=== PATIENT | male | born 1960 | race Caucasian/White ===

== ENCOUNTER 2017-12-31 18:10 | Inpatient (IN) ==
[2017-12-31] MEDS ORDERED: NITROGLYCERIN 2% OINT 1 INCH/GM PACK TOP STA (18:20)
[2017-12-31] MEDS ORDERED: hydrALAZINE 20 MG/1 ML VIAL IV STA (18:20)
[2017-12-31] MEDS ORDERED: ASPIRIN 325 MG TABLET PO STA (18:20)
[2017-12-31] MEDS ORDERED: METOPROLOL TARTRATE 5 MG/5 ML VIAL IV STA (18:20)
[2017-12-31] MEDS ORDERED: ONDANSETRON 4 MG/2 ML VIAL IV STA (18:20)
[2017-12-31] MEDS ORDERED: NITROGLYCERIN 2% OINT 1 INCH/GM PACK TOP ONE (18:28)
[2017-12-31] MEDS ORDERED: ONDANSETRON 4 MG/2 ML VIAL ONE (18:29)
[2017-12-31] MEDS ORDERED: hydrALAZINE 20 MG/1 ML VIAL ONE (18:29)
[2017-12-31] MEDS ORDERED: ASPIRIN 325 MG TABLET ONE (18:29)
[2017-12-31] MEDS ORDERED: METOPROLOL TARTRATE 5 MG/5 ML VIAL IV ONE (18:29)
[2017-12-31 18:34] LABS: Basophils % 0.3 % (0.0-0.8); Eosinophils # 0.2 10*3/uL (0.0-0.87); Eosinophils % 2.3 % (0.00-10.9); Hematocrit 47.1 VOL% (42.0-52.0); Hemoglobin 16.7 GM/DL (14.0-18.0); Immature Granulocytes % 0.5 %; Immature Granulocytes Absolute 0.05 #; Lymphocytes # 2.7 10*3/uL (1.4-4.0); Mean Corpuscular HGB Conc 35.5 GM/DL (32-36); Mean Corpuscular Hemoglobin 31 PG (27-34); Mean Corpuscular Volume 85.9 FL (87-102); Mean Platelet Volume 10.3 FL (9.6-12.0); Monocytes # 0.7 10*3/uL (0.11-0.8); Monocytes % 7.6 % (1.7-12.7); Neutrophils % 61.3 % (38.7-73.9); Platelet Count 272 T/CUMM (130-400); Red Blood Count 5.48 MC/CUMM (3.8-5.5); Red Cell Distribution Width 12.4 % (9.3-17.3); White Blood Count 9.8 T/CUMM (4-12)
[2017-12-31 18:42] LABS: PT Patient Result 10.1 SECS; Partial Thromboplastin Time 25.2 SECS (0-40)
[2017-12-31 19:04] LABS: Albumin 3.8 G/DL (3.4-5.0); Bilirubin,Total 0.4 MG/DL (0.2-1.0); CKMB % 3.3 %; Calcium 9.4 MG/DL (8.5-10.1); Potassium 5.4 MMOL/L (3.5-5.1); Total Protein 7.4 G/DL (6.4-8.3)
[2017-12-31 19:28] LABS: Troponin I Only 1.58 NG/ML (0.00-0.045)
[2017-12-31] MEDS ORDERED: INSULIN REGULAR 100 UNIT/ML IV STA (19:30)
[2017-12-31] MEDS ORDERED: SODIUM CHLORIDE 0.9% 500 ML IV STA (19:32)
[2017-12-31] MEDS ORDERED: INSULIN REGULAR 100 UNIT/ML ONE (19:42)
[2017-12-31] MEDS ORDERED: HYDROmorphone 2 MG/1 ML VIAL ONE ×2 (20:34→21:49)
[2017-12-31] MEDS ORDERED: HYDROmorphone 2 MG/1 ML VIAL IV STA ×2 (20:35→21:59)
[2017-12-31] MEDS ORDERED: traMADol 50 MG TABLET PO PRN (20:50)
[2017-12-31] MEDS ORDERED: HYDROmorphone 2 MG/1 ML VIAL IV PRN ×2 (20:56→23:54)
[2017-12-31] MEDS ORDERED: MAGNESIUM SULF RIDER 4 GM in PREMIX 1 EACH IV PRN (20:59)
[2017-12-31] MEDS ORDERED: POTASSIUM CHLORIDE 20 MEQ TABLET PO PRN (20:59)
[2017-12-31] MEDS ORDERED: DOCUSATE SODIUM 100 MG CAPSULE PO PRN (20:59)
[2017-12-31] MEDS ORDERED: PROMETHAZINE 25 MG TABLET PO PRN (20:59)
[2017-12-31] MEDS ORDERED: ONDANSETRON 4 MG/2 ML VIAL IV PRN ×2 (20:59→23:54)
[2017-12-31] MEDS ORDERED: DEXTROSE 50% 25 GM/50 ML VIAL IV PRN ×2 (20:59→23:54)
[2017-12-31] MEDS ORDERED: MAGNESIUM SULF RIDER 2 GM in PREMIX 1 EACH IV PRN (20:59)
[2017-12-31] MEDS ORDERED: ZALEPLON 5 MG CAPSULE PO PRN (20:59)
[2017-12-31] MEDS ORDERED: ACETAMINOPHEN 325 MG TABLET PO PRN (20:59)
[2017-12-31] MEDS ORDERED: GLUCAGON 1 MG VIAL IM PRN ×2 (20:59→23:54)
[2017-12-31] MEDS ORDERED: ENOXAPARIN 120 MG/0.8 ML SYRINGE SUBCUT SCH (21:00)
[2017-12-31] MEDS ORDERED: CARVEDILOL 12.5 MG TABLET PO SCH (21:00)
[2017-12-31] MEDS ORDERED: INSULIN REGULAR 100 UNIT/ML SUBCUT SCH (21:00)
[2017-12-31] MEDS ORDERED: CARVEDILOL 6.25 MG TABLET PO SCH (21:00)
[2017-12-31] MEDS ORDERED: hydrALAZINE 20 MG/1 ML VIAL IV PRN ×3 (21:10→23:54)
[2017-12-31] MEDS ORDERED: INSULIN NPH/REGULAR 70/30 100 UNIT/ML SUBCUT SCH ×2 (21:30→22:30)
[2017-12-31] MEDS ORDERED: ENOXAPARIN 120 MG/0.8 ML SYRINGE SUBCUT STA (21:41)
[2017-12-31] MEDS ORDERED: ENOXAPARIN 120 MG/0.8 ML SYRINGE SUBCUT ONE (21:45)
[2017-12-31] MEDS ORDERED: FUROSEMIDE 20 MG/2 ML VIAL IV STA (23:13)
[2017-12-31 23:21] LABS: Apearance,Urine CLEAR (Clear); Bilirubin,Urine Negative (Negative); Blood, Urine Negative (Negative); Glucose,Urine (UA) >=500 mg/dL (Negative); Ketones,Urine Negative (Negative); Nitrite,Urine Negative (Negative); Protein,Urine Negative; RBC,Urine <1 /HPF (0-4); Urine Color Yellow (Yellow); Urine Specific Gravity 1.036 (1.001-1.035); Urine Urobilinogen < 2.0 EU/DL (0.2-1.0); WBC,Urine 1 /HPF (0-6)
[2017-12-31 23:31] LABS: Barbiturates Screen,Urine Negative (Negative); Benzodiazepines Screen,Urine Negative (Negative); Cannabinoid Screen,Urine Negative (Negative); Opiate Screen,Urine Positive (Negative); Phencyclidine Screen,Urine Negative (Negative)
[2017-12-31] MEDS ORDERED: FUROSEMIDE 20 MG/2 ML VIAL ONE (23:41)
[2017-12-31] MEDS ORDERED: NITROGLYCERIN DRIP 50 MG/250 ML BOTTLE IV ONE (23:47)
[2017-12-31] MEDS: NITROGLYCERIN DRIP 50 MG/250 ML BOTTLE IV SCH (23:50)
[2017-12-31] MEDS ORDERED: SODIUM CHLORIDE 0.45% 1,000 ML IV SCH (23:54)
[2018-01-01] MEDS: NITROGLYCERIN 2% OINT 1 INCH/GM PACK TOP SCH ×4 (00:39→17:16)
[2018-01-01 00:43] LABS: CKMB % 3.7 %
[2018-01-01 00:49] LABS: Troponin I Only 3.02 NG/ML (0.00-0.045)
[2018-01-01] MEDS: INSULIN REGULAR 100 UNIT/ML SUBCUT SCH ×5 (01:14→20:07)
[2018-01-01] MEDS: HYDROmorphone 2 MG/1 ML VIAL IV PRN ×6 (03:11→22:01)
[2018-01-01 05:16] LABS: Risk Ratio 7.89; VLDL CHOLESTEROL 72.6 MG/DL
[2018-01-01 05:28] LABS: CKMB % 3.7 %; Troponin I Only 3.91 NG/ML (0.00-0.045)
[2018-01-01] MEDS ORDERED: ACETAMINOPHEN 325 MG TABLET PO PRN (08:20)
[2018-01-01] MEDS ORDERED: MAGNESIUM SULF RIDER 2 GM in PREMIX 1 EACH IV PRN (08:20)
[2018-01-01] MEDS ORDERED: ZALEPLON 5 MG CAPSULE PO PRN (08:20)
[2018-01-01] MEDS ORDERED: DOCUSATE SODIUM 100 MG CAPSULE PO PRN (08:20)
[2018-01-01] MEDS ORDERED: MAGNESIUM SULF RIDER 4 GM in PREMIX 1 EACH IV PRN (08:20)
[2018-01-01] MEDS ORDERED: DIAZEPAM 5 MG TABLET ONE (08:41)
[2018-01-01] MEDS ORDERED: diphenhydrAMINE CAP 25 MG CAPSULE ONE (08:41)
[2018-01-01] MEDS ORDERED: diphenhydrAMINE CAP 50 MG CAPSULE PO ONE (08:44)
[2018-01-01] MEDS ORDERED: DIAZEPAM 5 MG TABLET PO ONE (08:45)
[2018-01-01 08:46] LABS: Basophils # 0.1 10*3/uL (0.0-0.2); Basophils % 0.6 % (0.0-0.8); Eosinophils # 0.2 10*3/uL (0.0-0.87); Eosinophils % 2.9 % (0.00-10.9); Hematocrit 42.2 VOL% (42.0-52.0); Hemoglobin 14.9 GM/DL (14.0-18.0); Immature Granulocytes % 0.8 %; Immature Granulocytes Absolute 0.06 #; Lymphocytes # 2.8 10*3/uL (1.4-4.0); Lymphocytes % 34.7 % (21.2-54.2); Mean Corpuscular HGB Conc 35.3 GM/DL (32-36); Mean Corpuscular Hemoglobin 31 PG (27-34); Mean Corpuscular Volume 86.3 FL (87-102); Monocytes # 0.8 10*3/uL (0.11-0.8); Monocytes % 9.6 % (1.7-12.7); Neutrophils # 4.1 10*3/uL (1.4-7.4); Neutrophils % 51.4 % (38.7-73.9); Platelet Count 254 T/CUMM (130-400); Red Blood Count 4.89 MC/CUMM (3.8-5.5); Red Cell Distribution Width 12.6 % (9.3-17.3); White Blood Count 7.9 T/CUMM (4-12)
[2018-01-01] MEDS: PANTOPRAZOLE 40 MG TABLET PO SCH (08:46)
[2018-01-01] MEDS: PRASUGREL 10 MG TABLET PO SCH (08:46)
[2018-01-01] MEDS: CARVEDILOL 12.5 MG TABLET PO SCH ×2 (08:46→20:07)
[2018-01-01] MEDS: ASPIRIN EC 81 MG TABLET PO SCH (08:46)
[2018-01-01] MEDS: ENOXAPARIN 120 MG/0.8 ML SYRINGE SUBCUT SCH ×2 (08:57→20:11)
[2018-01-01] MEDS ORDERED: LISINOPRIL 10 MG TABLET PO SCH (09:00)
[2018-01-01] MEDS ORDERED: PANTOPRAZOLE 40 MG TABLET PO SCH (09:00)
[2018-01-01] MEDS ORDERED: PRASUGREL 10 MG TABLET PO SCH (09:00)
[2018-01-01] MEDS ORDERED: PRAVASTATIN 40 MG TABLET PO SCH (09:00)
[2018-01-01] MEDS ORDERED: ASPIRIN EC 81 MG TABLET PO SCH (09:00)
[2018-01-01] MEDS ORDERED: NITROGLYCERIN 0.1 MG/HR PATCH TRANSDERM SCH (09:00)
[2018-01-01] MEDS: SODIUM CHLORIDE 0.9% 1,000 ML IV SCH ×3 (09:00→19:45)
[2018-01-01] MEDS ORDERED: INSULIN NPH/REGULAR 70/30 100 UNIT/ML SUBCUT SCH ×2 (09:00)
[2018-01-01 09:09] LABS: Calcium 8.8 MG/DL (8.5-10.1); Potassium 4.6 MMOL/L (3.5-5.1)
[2018-01-01] MEDS ORDERED: LIDOCAINE 1% 20 ML VIAL ONE (09:26)
[2018-01-01] MEDS ORDERED: MEPERIDINE 25 MG/1 ML VIAL ONE ×3 (09:26→10:14)
[2018-01-01] MEDS ORDERED: MIDAZOLAM 2 MG/2 ML VIAL ONE (09:26)
[2018-01-01] MEDS ORDERED: TIROFIBAN 5,000 MCG/100 ML PREMIX IV ONE (10:11)
[2018-01-01] MEDS ORDERED: HEPARIN 5,000 UNIT/1 ML VIAL ONE (10:24)
[2018-01-01] MEDS ORDERED: HYDROmorphone 2 MG/1 ML VIAL ONE (11:00)
[2018-01-01] MEDS ORDERED: NITROGLYCERIN DRIP 50 MG/250 ML BOTTLE IV ONE (11:05)
[2018-01-01] MEDS ORDERED: PRASUGREL 10 MG TABLET ONE (11:43)
[2018-01-01 13:32] LABS: CKMB % 3.2 %
[2018-01-01 13:34] LABS: Troponin I Only 4.22 NG/ML (0.00-0.045)
[2018-01-01] MEDS: VENLAFAXINE XR 75 MG CAPSULE PO SCH (14:25)
[2018-01-01] MEDS: ROSUVASTATIN 20 MG TABLET PO SCH (20:07)
[2018-01-01 23:01] LABS: CKMB % 3.8 %
[2018-01-01 23:03] LABS: Troponin I Only 3.48 NG/ML (0.00-0.045)
[2018-01-02] MEDS: NITROGLYCERIN 2% OINT 1 INCH/GM PACK TOP SCH ×2 (00:06→06:16)
[2018-01-02] MEDS: HYDROmorphone 2 MG/1 ML VIAL IV PRN ×3 (00:49→07:24)
[2018-01-02 04:27] LABS: Basophils % 0.5 % (0.0-0.8); Eosinophils # 0.3 10*3/uL (0.0-0.87); Eosinophils % 3.2 % (0.00-10.9); Hemoglobin 14.4 GM/DL (14.0-18.0); Immature Granulocytes % 0.7 %; Immature Granulocytes Absolute 0.06 #; Lymphocytes # 1.7 10*3/uL (1.4-4.0); Lymphocytes % 20.1 % (21.2-54.2); Mean Corpuscular HGB Conc 33.5 GM/DL (32-36); Mean Corpuscular Hemoglobin 30 PG (27-34); Mean Corpuscular Volume 88.8 FL (87-102); Mean Platelet Volume 9.9 FL (9.6-12.0); Monocytes # 0.7 10*3/uL (0.11-0.8); Monocytes % 7.7 % (1.7-12.7); Neutrophils # 5.8 10*3/uL (1.4-7.4); Neutrophils % 67.8 % (38.7-73.9); Platelet Count 226 T/CUMM (130-400); Red Blood Count 4.84 MC/CUMM (3.8-5.5); Red Cell Distribution Width 12.5 % (9.3-17.3); White Blood Count 8.5 T/CUMM (4-12)
[2018-01-02 04:57] LABS: Calcium 8.3 MG/DL (8.5-10.1); Osmolality,Calculated 276.1 MOS/KG (273-304); Potassium 4.7 MMOL/L (3.5-5.1)
[2018-01-02 05:00] LABS: CKMB % 4.6 %
[2018-01-02 05:03] LABS: Troponin I Only 3.03 NG/ML (0.00-0.045)
[2018-01-02] MEDS: NITROGLYCERIN DRIP 50 MG/250 ML BOTTLE IV SCH (07:05)
[2018-01-02] MEDS: INSULIN REGULAR 100 UNIT/ML SUBCUT SCH ×4 (08:36→21:25)
[2018-01-02] MEDS: PANTOPRAZOLE 40 MG TABLET PO SCH (08:37)
[2018-01-02] MEDS: VENLAFAXINE XR 75 MG CAPSULE PO SCH (08:37)
[2018-01-02] MEDS: ENOXAPARIN 120 MG/0.8 ML SYRINGE SUBCUT SCH (08:37)
[2018-01-02] MEDS: ASPIRIN EC 81 MG TABLET PO SCH (08:38)
[2018-01-02] MEDS: CARVEDILOL 12.5 MG TABLET PO SCH (08:38)
[2018-01-02] MEDS: PRASUGREL 10 MG TABLET PO SCH (08:38)
[2018-01-02] MEDS: ISOSORBIDE MONONITRATE 30 MG TABLET PO SCH (11:36)
[2018-01-02] MEDS: CARVEDILOL 25 MG TABLET PO SCH (21:22)
[2018-01-02] MEDS: ROSUVASTATIN 20 MG TABLET PO SCH (21:22)
[2018-01-03 05:01] LABS: Basophils % 0.2 % (0.0-0.8); Eosinophils # 0.2 10*3/uL (0.0-0.87); Eosinophils % 3.3 % (0.00-10.9); Hematocrit 38.9 VOL% (42.0-52.0); Hemoglobin 13.7 GM/DL (14.0-18.0); Immature Granulocytes % 0.6 %; Immature Granulocytes Absolute 0.03 #; Lymphocytes # 1.2 10*3/uL (1.4-4.0); Lymphocytes % 23.1 % (21.2-54.2); Mean Corpuscular HGB Conc 35.2 GM/DL (32-36); Mean Corpuscular Hemoglobin 30 PG (27-34); Mean Corpuscular Volume 85.1 FL (87-102); Mean Platelet Volume 10.1 FL (9.6-12.0); Monocytes # 0.5 10*3/uL (0.11-0.8); Monocytes % 8.6 % (1.7-12.7); Neutrophils # 3.4 10*3/uL (1.4-7.4); Neutrophils % 64.2 % (38.7-73.9); Platelet Count 204 T/CUMM (130-400); Red Blood Count 4.57 MC/CUMM (3.8-5.5); Red Cell Distribution Width 12.2 % (9.3-17.3); White Blood Count 5.2 T/CUMM (4-12)
[2018-01-03 05:59] LABS: Calcium 8.3 MG/DL (8.5-10.1); Osmolality,Calculated 285.7 MOS/KG (273-304); Potassium 4.4 MMOL/L (3.5-5.1)
[2018-01-03 08:22] VITALS: BP 165/88
[2018-01-03] MEDS ORDERED: ENOXAPARIN 40 MG/0.4 ML SYRINGE SUBCUT SCH (09:00)
[2018-01-03] MEDS: VENLAFAXINE XR 75 MG CAPSULE PO SCH (09:00)
[2018-01-03] MEDS ORDERED: LISINOPRIL 10 MG TABLET PO SCH (09:00)
[2018-01-03] MEDS: CARVEDILOL 25 MG TABLET PO SCH (09:00)
[2018-01-03] MEDS: PRASUGREL 10 MG TABLET PO SCH (09:01)
[2018-01-03] MEDS: ASPIRIN EC 81 MG TABLET PO SCH (09:01)
[2018-01-03] MEDS: ISOSORBIDE MONONITRATE 30 MG TABLET PO SCH (09:01)
[2018-01-03] MEDS: PANTOPRAZOLE 40 MG TABLET PO SCH (09:01)
[2018-01-03] MEDS: INSULIN REGULAR 100 UNIT/ML SUBCUT SCH (09:03)
== END 2018-01-03 11:33 | disposition home or self-care (01) | DRG 247 ==
LOC: EDBD → EDUNIT# → N.ED 18:10 → N.EDINP 19:46 → N.TELES 20:17 → N.ED 21:06 → N.CC 23:54 → N.TELEN 01-02 15:54
PROVIDERS: ADMIT Internal Medicine Clinical Cardiac Electrophysiology; ATTEND Internal Medicine Clinical Cardiac Electrophysiology
PROC: CLCCHCL (ICD-10-PCS; 2018-01-01 09:45)

== ENCOUNTER 2018-05-10 14:50 | Inpatient (IN) ==
[2018-05-10] MEDS ORDERED: ONDANSETRON 4 MG/2 ML VIAL IV PRN (15:11)
[2018-05-10] MEDS ORDERED: DOCUSATE SODIUM 100 MG CAPSULE PO PRN (15:11)
[2018-05-10] MEDS ORDERED: DEXTROSE 50% 25 GM/50 ML VIAL IV PRN (15:17)
[2018-05-10] MEDS ORDERED: GLUCAGON 1 MG VIAL IM PRN (15:17)
[2018-05-10] MEDS: INSULIN REGULAR 100 UNIT/ML SUBCUT SCH (18:10)
[2018-05-10] MEDS: SODIUM CHLORIDE 0.9% 1,000 ML IV SCH (18:46)
[2018-05-10] MEDS: PIPERACILLIN/TAZOBACTAM 3,375 MG in SODIUM CHLORIDE 0.9% 100 ML IV SCH (18:47)
[2018-05-10 18:49] LABS: Basophils % 0.4 % (0.0-0.8); Eosinophils # 0.2 10*3/uL (0.0-0.87); Eosinophils % 2.6 % (0.00-10.9); Hematocrit 38.6 VOL% (42.0-52.0); Hemoglobin 13.3 GM/DL (14.0-18.0); Immature Granulocytes % 0.4 %; Immature Granulocytes Absolute 0.03 #; Lymphocytes # 1.8 10*3/uL (1.4-4.0); Lymphocytes % 25.4 % (21.2-54.2); Mean Corpuscular HGB Conc 34.5 GM/DL (32-36); Mean Corpuscular Hemoglobin 30 PG (27-34); Mean Corpuscular Volume 87.1 FL (87-102); Mean Platelet Volume 10.3 FL (9.6-12.0); Monocytes # 0.6 10*3/uL (0.11-0.8); Monocytes % 8.9 % (1.7-12.7); Neutrophils # 4.4 10*3/uL (1.4-7.4); Neutrophils % 62.3 % (38.7-73.9); Platelet Count 189 T/CUMM (130-400); Red Blood Count 4.43 MC/CUMM (3.8-5.5); Red Cell Distribution Width 12.5 % (9.3-17.3); White Blood Count 7.1 T/CUMM (4-12)
[2018-05-10 19:10] LABS: Platelet Estimate Adequate
[2018-05-10 19:14] LABS: Alanine Aminotransferase 23 U/L (16-61); Albumin 3.5 G/DL (3.4-5.0); Alkaline Phosphatase 102 U/L (45-117); Aspartate Amino Transferase 20 U/L (0-37); Bilirubin,Total < 0.39 MG/DL (0.2-1.0); Blood Urea Nitrogen 25 MG/DL (7-18); Calcium 9.4 MG/DL (8.5-10.1); Glucose 273 MG/DL (74-106); Osmolality,Calculated 292.4 MOS/KG (273-304); Potassium 4.8 MMOL/L (3.5-5.1); Sodium 140 MMOL/L (136-145); Total Protein 7.3 G/DL (6.4-8.3)
[2018-05-10] MEDS: VANCOMYCIN INJ 2,000 MG in SODIUM CHLORIDE 0.9% 500 ML IV SCH (23:06)
[2018-05-11] MEDS: INSULIN REGULAR 100 UNIT/ML SUBCUT SCH ×4 (00:12→21:00)
[2018-05-11] MEDS: PIPERACILLIN/TAZOBACTAM 3,375 MG in SODIUM CHLORIDE 0.9% 100 ML IV SCH ×2 (03:36→12:24)
[2018-05-11] MEDS: ACETAMINOPHEN 325 MG TABLET PO PRN ×2 (03:39→12:30)
[2018-05-11] MEDS: amLODIPine 10 MG TABLET PO SCH (09:23)
[2018-05-11] MEDS: CARVEDILOL 25 MG TABLET PO SCH ×2 (09:23→18:27)
[2018-05-11] MEDS: VENLAFAXINE XR 75 MG CAPSULE PO SCH ×3 (09:23→22:21)
[2018-05-11] MEDS: LISINOPRIL 10 MG TABLET PO SCH (09:24)
[2018-05-11] MEDS: ASPIRIN EC 81 MG TABLET PO SCH (09:24)
[2018-05-11] MEDS: PANTOPRAZOLE 40 MG TABLET PO SCH (09:24)
[2018-05-11] MEDS: VANCOMYCIN INJ 2,000 MG in SODIUM CHLORIDE 0.9% 500 ML IV SCH (18:28)
[2018-05-11] MEDS: SODIUM CHLORIDE 0.9% 1,000 ML IV SCH (20:59)
[2018-05-11] MEDS: ROSUVASTATIN 20 MG TABLET PO SCH (22:20)
[2018-05-12] MEDS: PIPERACILLIN/TAZOBACTAM 3,375 MG in SODIUM CHLORIDE 0.9% 100 ML IV SCH ×3 (00:34→17:26)
[2018-05-12] MEDS: INSULIN REGULAR 100 UNIT/ML SUBCUT SCH ×4 (06:27→17:27)
[2018-05-12] MEDS: SODIUM CHLORIDE 0.9% 1,000 ML IV SCH (07:52)
[2018-05-12] MEDS: VANCOMYCIN INJ 2,000 MG in SODIUM CHLORIDE 0.9% 500 ML IV SCH (07:52)
[2018-05-12] MEDS ORDERED: INSULIN GLARGINE 100 UNIT/ML SUBCUT ONE (07:57)
[2018-05-12] MEDS: CARVEDILOL 25 MG TABLET PO SCH ×2 (09:33→17:26)
[2018-05-12] MEDS: ASPIRIN EC 81 MG TABLET PO SCH (09:33)
[2018-05-12] MEDS: PANTOPRAZOLE 40 MG TABLET PO SCH (09:33)
[2018-05-12] MEDS: VENLAFAXINE XR 75 MG CAPSULE PO SCH ×3 (09:33→21:55)
[2018-05-12] MEDS: amLODIPine 10 MG TABLET PO SCH (09:33)
[2018-05-12] MEDS: LISINOPRIL 10 MG TABLET PO SCH (09:33)
[2018-05-12] MEDS: NEOMYCIN/POLYMYXIN/BACITRACIN OINT 0.9 GM PACK TOP SCH (11:38)
[2018-05-12] MEDS ORDERED: LEVOFLOXACIN 750 MG TABLET PO SCH (18:00)
[2018-05-12] MEDS: ROSUVASTATIN 20 MG TABLET PO SCH (21:55)
[2018-05-13] MEDS: PIPERACILLIN/TAZOBACTAM 3,375 MG in SODIUM CHLORIDE 0.9% 100 ML IV SCH ×2 (02:37→11:32)
[2018-05-13] MEDS: INSULIN REGULAR 100 UNIT/ML SUBCUT SCH ×2 (02:54→07:25)
[2018-05-13] MEDS: SODIUM CHLORIDE 0.9% 1,000 ML IV SCH ×2 (07:31→11:32)
[2018-05-13 07:40] VITALS: BP 141/83
[2018-05-13] MEDS ORDERED: PRASUGREL 10 MG TABLET PO SCH (09:00)
[2018-05-13] MEDS ORDERED: INSULIN GLARGINE 100 UNIT/ML SUBCUT SCH (09:00)
[2018-05-13] MEDS: PANTOPRAZOLE 40 MG TABLET PO SCH (09:30)
[2018-05-13] MEDS: LISINOPRIL 10 MG TABLET PO SCH (09:30)
[2018-05-13] MEDS: CARVEDILOL 25 MG TABLET PO SCH (09:30)
[2018-05-13] MEDS: VENLAFAXINE XR 75 MG CAPSULE PO SCH (09:30)
[2018-05-13] MEDS: NEOMYCIN/POLYMYXIN/BACITRACIN OINT 0.9 GM PACK TOP SCH (09:30)
[2018-05-13] MEDS: amLODIPine 10 MG TABLET PO SCH (09:30)
[2018-05-13] MEDS: ASPIRIN EC 81 MG TABLET PO SCH (09:30)
== END 2018-05-13 11:30 | disposition home or self-care (01) | DRG 638 ==
LOC: N.3E
PROVIDERS: ADMIT Family Medicine; ATTEND Family Medicine

== ENCOUNTER 2018-11-13 09:29 | Observation (INO) ==
[2018-11-13] MEDS ORDERED: NITROGLYCERIN SL 0.4 MG TABLET SL ONE (09:49)
[2018-11-13] MEDS ORDERED: HEPARIN 5,000 UNIT/1 ML VIAL IV ONE (09:53)
[2018-11-13] MEDS ORDERED: ONDANSETRON 4 MG/2 ML VIAL IV STA (09:53)
[2018-11-13] MEDS ORDERED: ASPIRIN 325 MG TABLET PO STA (09:53)
[2018-11-13] MEDS: NITROGLYCERIN SL 0.4 MG TABLET SL PRN ×2 (09:55→10:05)
[2018-11-13] MEDS ORDERED: HEPARIN DRIP 25,000 UNITS/500 ML PREMIX IV SCH (10:00)
[2018-11-13 10:12] LABS: Basophils % 0.2 % (0.0-0.8); Eosinophils # 0.2 10*3/uL (0.0-0.87); Eosinophils % 2.9 % (0.00-10.9); Hematocrit 42.5 VOL% (42.0-52.0); Hemoglobin 14.4 GM/DL (14.0-18.0); Immature Granulocytes % 0.5 %; Immature Granulocytes Absolute 0.04 #; Lymphocytes # 2.1 10*3/uL (1.4-4.0); Lymphocytes % 24.9 % (21.2-54.2); Mean Corpuscular HGB Conc 33.9 GM/DL (32-36); Mean Corpuscular Hemoglobin 30 PG (27-34); Mean Corpuscular Volume 87.3 FL (87-102); Mean Platelet Volume 10.2 FL (9.6-12.0); Monocytes # 0.6 10*3/uL (0.11-0.8); Neutrophils # 5.4 10*3/uL (1.4-7.4); Neutrophils % 64.5 % (38.7-73.9); Platelet Count 201 T/CUMM (130-400); Red Blood Count 4.87 MC/CUMM (3.8-5.5); Red Cell Distribution Width 12.8 % (9.3-17.3); White Blood Count 8.4 T/CUMM (4-12)
[2018-11-13] MEDS ORDERED: HYDROmorphone 2 MG/1 ML VIAL ONE (10:13)
[2018-11-13] MEDS: HYDROmorphone 2 MG/1 ML VIAL IV STA ×2 (10:15→10:47)
[2018-11-13 10:25] LABS: PT Patient Result 10.4 SECS; Partial Thromboplastin Time 26.6 SECS (0-40)
[2018-11-13 10:39] LABS: Osmolality,Calculated 284.8 MOS/KG (273-304); Potassium 4.8 MMOL/L (3.5-5.1)
[2018-11-13] MEDS ORDERED: SODIUM CHLORIDE 0.9% 500 ML IV STA (10:49)
[2018-11-13] MEDS ORDERED: ACETAMINOPHEN 325 MG TABLET PO PRN (10:53)
[2018-11-13] MEDS ORDERED: ZALEPLON 5 MG CAPSULE PO PRN (10:53)
[2018-11-13] MEDS ORDERED: MAGNESIUM SULF RIDER 2 GM in PREMIX 1 EACH IV PRN (10:53)
[2018-11-13] MEDS ORDERED: GLUCAGON 1 MG VIAL IM PRN (10:53)
[2018-11-13] MEDS ORDERED: ONDANSETRON 4 MG/2 ML VIAL IV PRN (10:53)
[2018-11-13] MEDS ORDERED: DEXTROSE 50% 25 GM/50 ML SYRINGE IV PRN (10:53)
[2018-11-13] MEDS ORDERED: MAGNESIUM SULF RIDER 4 GM in PREMIX 1 EACH IV PRN (10:53)
[2018-11-13] MEDS ORDERED: POTASSIUM CHLORIDE 20 MEQ TABLET PO PRN (10:53)
[2018-11-13] MEDS ORDERED: SODIUM CHLORIDE 0.45% 1,000 ML IV SCH (11:00)
[2018-11-13] MEDS: INSULIN LISPRO 100 UNIT/ML SUBCUT SCH ×3 (12:37→21:50)
[2018-11-13] MEDS: ROSUVASTATIN 20 MG TABLET PO SCH (21:49)
[2018-11-13] MEDS: ENOXAPARIN 120 MG/0.8 ML SYRINGE SUBCUT SCH (21:49)
[2018-11-13] MEDS: LISINOPRIL 5 MG TABLET PO SCH (21:49)
[2018-11-13] MEDS: traZODone 50 MG TABLET PO SCH (21:49)
[2018-11-13] MEDS: CARVEDILOL 25 MG TABLET PO SCH (21:50)
[2018-11-14] MEDS: INSULIN LISPRO 100 UNIT/ML SUBCUT SCH ×3 (09:20→22:13)
[2018-11-14] MEDS: ENOXAPARIN 120 MG/0.8 ML SYRINGE SUBCUT SCH (09:21)
[2018-11-14] MEDS ORDERED: POTASSIUM CHLORIDE RIDER 10 MEQ in PREMIX 1 EACH IV PRN (14:19)
[2018-11-14] MEDS ORDERED: diphenhydrAMINE CAP 25 MG CAPSULE PO ONE (14:19)
[2018-11-14] MEDS ORDERED: DIAZEPAM 5 MG TABLET PO ONE (14:19)
[2018-11-14] MEDS ORDERED: MAGNESIUM SULF RIDER 2 GM in PREMIX 1 EACH IV PRN (14:19)
[2018-11-14] MEDS ORDERED: diphenhydrAMINE CAP 50 MG CAPSULE ONE (14:19)
[2018-11-14] MEDS ORDERED: DIAZEPAM 5 MG TABLET ONE (14:21)
[2018-11-14] MEDS: CARVEDILOL 25 MG TABLET PO SCH ×2 (14:26→19:42)
[2018-11-14] MEDS: LISINOPRIL 5 MG TABLET PO SCH ×2 (14:26→21:25)
[2018-11-14] MEDS: ISOSORBIDE MONONITRATE 30 MG TABLET PO SCH (14:26)
[2018-11-14] MEDS: PRASUGREL 10 MG TABLET PO SCH (14:26)
[2018-11-14] MEDS: ASPIRIN EC 81 MG TABLET PO SCH (14:26)
[2018-11-14] MEDS: glipiZIDE 5 MG TABLET PO SCH (14:26)
[2018-11-14] MEDS: SODIUM CHLORIDE 0.9% 1,000 ML IV SCH ×2 (14:27→16:50)
[2018-11-14] MEDS ORDERED: LIDOCAINE 1% 20 ML VIAL ONE (14:42)
[2018-11-14] MEDS ORDERED: fentaNYL 100 MCG/2 ML VIAL ONE (14:44)
[2018-11-14] MEDS ORDERED: MIDAZOLAM 2 MG/2 ML VIAL ONE (14:44)
[2018-11-14] MEDS ORDERED: HYDROmorphone 2 MG/1 ML VIAL ONE (15:40)
[2018-11-14] MEDS ORDERED: ENOXAPARIN 40 MG/0.4 ML SYRINGE SUBCUT SCH (17:30)
[2018-11-14] MEDS: fentaNYL 100 MCG/2 ML VIAL IV PRN ×2 (17:59→22:13)
[2018-11-14] MEDS: GABAPENTIN 300 MG CAPSULE PO SCH ×2 (19:42→21:24)
[2018-11-14] MEDS: CILOSTAZOL 50 MG TABLET PO SCH ×2 (19:43→21:25)
[2018-11-14] MEDS: PANTOPRAZOLE 40 MG TABLET PO SCH (19:43)
[2018-11-14] MEDS: ROSUVASTATIN 20 MG TABLET PO SCH (21:24)
[2018-11-14] MEDS: traZODone 50 MG TABLET PO SCH (21:26)
[2018-11-14] MEDS: RANOLAZINE 500 MG TABLET PO SCH (21:26)
[2018-11-14] MEDS: ERTUGLIFLOZIN PO SCH (21:44)
[2018-11-14] MEDS: SITAGLIPTIN PO SCH (21:44)
[2018-11-15 01:54] LABS: Basophils % 0.3 % (0.0-0.8); Eosinophils # 0.2 10*3/uL (0.0-0.87); Eosinophils % 2.6 % (0.00-10.9); Hematocrit 36.6 VOL% (42.0-52.0); Hemoglobin 12.3 GM/DL (14.0-18.0); Immature Granulocytes % 0.4 %; Immature Granulocytes Absolute 0.03 #; Lymphocytes # 1.8 10*3/uL (1.4-4.0); Lymphocytes % 25.6 % (21.2-54.2); Mean Corpuscular HGB Conc 33.6 GM/DL (32-36); Mean Corpuscular Hemoglobin 30 PG (27-34); Mean Corpuscular Volume 89.1 FL (87-102); Mean Platelet Volume 10.2 FL (9.6-12.0); Monocytes # 0.6 10*3/uL (0.11-0.8); Monocytes % 8.5 % (1.7-12.7); Neutrophils # 4.5 10*3/uL (1.4-7.4); Neutrophils % 62.6 % (38.7-73.9); Platelet Count 175 T/CUMM (130-400); Red Blood Count 4.11 MC/CUMM (3.8-5.5); White Blood Count 7.2 T/CUMM (4-12)
[2018-11-15] MEDS ORDERED: SODIUM CHLORIDE 0.9% 500 ML IV ONE (01:58)
[2018-11-15 02:20] LABS: Calcium 7.9 MG/DL (8.5-10.1); Potassium 4.3 MMOL/L (3.5-5.1)
[2018-11-15] MEDS: CILOSTAZOL 50 MG TABLET PO SCH (09:31)
[2018-11-15] MEDS: ISOSORBIDE MONONITRATE 30 MG TABLET PO SCH (09:31)
[2018-11-15] MEDS: CARVEDILOL 25 MG TABLET PO SCH (09:31)
[2018-11-15] MEDS: LISINOPRIL 5 MG TABLET PO SCH (09:31)
[2018-11-15] MEDS: GABAPENTIN 300 MG CAPSULE PO SCH (09:31)
[2018-11-15] MEDS: PANTOPRAZOLE 40 MG TABLET PO SCH (09:31)
[2018-11-15] MEDS: RANOLAZINE 500 MG TABLET PO SCH (09:31)
[2018-11-15] MEDS: ASPIRIN EC 81 MG TABLET PO SCH (09:31)
[2018-11-15] MEDS: PRASUGREL 10 MG TABLET PO SCH (09:31)
[2018-11-15] MEDS: glipiZIDE 5 MG TABLET PO SCH (09:31)
[2018-11-15] MEDS: INSULIN LISPRO 100 UNIT/ML SUBCUT SCH (09:32)
[2018-11-15] MEDS: SITAGLIPTIN PO SCH (09:36)
[2018-11-15] MEDS: ERTUGLIFLOZIN PO SCH (09:36)
[2018-11-15 12:11] VITALS: BP 119/66
== END 2018-11-15 15:50 | disposition home or self-care (01) ==
LOC: N.EDINP 09:29 → N.ED 09:29 → N.TELEN 12:10
PROVIDERS: ADMIT Internal Medicine Cardiovascular Disease; ATTEND Internal Medicine Cardiovascular Disease

== ENCOUNTER 2018-11-22 10:02 | Observation (INO) ==
[2018-11-22] MEDS ORDERED: SODIUM CHLORIDE 0.9% 1,000 ML IV STA (10:48)
[2018-11-22 10:51] LABS: Basophils % 0.3 % (0.0-0.8); Eosinophils # 0.2 10*3/uL (0.0-0.87); Eosinophils % 2.4 % (0.00-10.9); Hematocrit 42.7 VOL% (42.0-52.0); Hemoglobin 14.6 GM/DL (14.0-18.0); Immature Granulocytes % 0.7 %; Immature Granulocytes Absolute 0.07 #; Lymphocytes % 20.9 % (21.2-54.2); Mean Corpuscular HGB Conc 34.2 GM/DL (32-36); Mean Corpuscular Hemoglobin 30 PG (27-34); Mean Corpuscular Volume 86.8 FL (87-102); Monocytes # 0.7 10*3/uL (0.11-0.8); Monocytes % 6.9 % (1.7-12.7); Neutrophils # 6.5 10*3/uL (1.4-7.4); Neutrophils % 68.8 % (38.7-73.9); Platelet Count 221 T/CUMM (130-400); Red Blood Count 4.92 MC/CUMM (3.8-5.5); Red Cell Distribution Width 13.5 % (9.3-17.3); White Blood Count 9.4 T/CUMM (4-12)
[2018-11-22 11:06] LABS: Calcium 9.4 MG/DL (8.5-10.1); Osmolality,Calculated 287.2 MOS/KG (273-304); Potassium 5.1 MMOL/L (3.5-5.1)
[2018-11-22] MEDS ORDERED: GLUCAGON 1 MG VIAL IM PRN (11:21)
[2018-11-22] MEDS ORDERED: ONDANSETRON 4 MG/2 ML VIAL IV PRN (11:21)
[2018-11-22] MEDS ORDERED: ACETAMINOPHEN 325 MG TABLET PO PRN (11:21)
[2018-11-22] MEDS ORDERED: DEXTROSE 50% 25 GM/50 ML SYRINGE IV PRN (11:21)
[2018-11-22] MEDS: SODIUM CHLORIDE 0.9% 1,000 ML IV SCH ×2 (13:27→20:38)
[2018-11-22] MEDS: GABAPENTIN 100 MG CAPSULE PO SCH ×2 (14:58→20:37)
[2018-11-22] MEDS: INSULIN LISPRO 100 UNIT/ML SUBCUT SCH ×2 (16:50→21:25)
[2018-11-22] MEDS: ROSUVASTATIN 20 MG TABLET PO SCH (20:37)
[2018-11-22] MEDS: DOCUSATE SODIUM 100 MG CAPSULE PO SCH (20:37)
[2018-11-22] MEDS: traZODone 50 MG TABLET PO SCH (20:37)
[2018-11-22] MEDS ORDERED: CILOSTAZOL 50 MG TABLET PO SCH (21:00)
[2018-11-23] MEDS: SODIUM CHLORIDE 0.9% 1,000 ML IV SCH ×3 (04:30→16:35)
[2018-11-23 08:21] LABS: Calcium 8.8 MG/DL (8.5-10.1); Osmolality,Calculated 283.2 MOS/KG (273-304); Potassium 4.9 MMOL/L (3.5-5.1)
[2018-11-23] MEDS ORDERED: SITAGLIPTIN PO SCH (09:00)
[2018-11-23] MEDS ORDERED: ERTUGLIFLOZIN PO SCH (09:00)
[2018-11-23] MEDS: DOCUSATE SODIUM 100 MG CAPSULE PO SCH ×2 (09:21→22:03)
[2018-11-23] MEDS: PRASUGREL 10 MG TABLET PO SCH (09:21)
[2018-11-23] MEDS: glipiZIDE 5 MG TABLET PO SCH (09:22)
[2018-11-23] MEDS: ASPIRIN EC 81 MG TABLET PO SCH (09:22)
[2018-11-23] MEDS: GABAPENTIN 100 MG CAPSULE PO SCH ×3 (09:22→22:01)
[2018-11-23] MEDS: INSULIN LISPRO 100 UNIT/ML SUBCUT SCH ×4 (09:22→22:04)
[2018-11-23] MEDS: PANTOPRAZOLE 40 MG TABLET PO SCH (09:22)
[2018-11-23] MEDS: CARVEDILOL 25 MG TABLET PO SCH ×2 (12:32→22:03)
[2018-11-23] MEDS: LISINOPRIL 5 MG TABLET PO SCH (16:33)
[2018-11-23] MEDS: ROSUVASTATIN 20 MG TABLET PO SCH (22:02)
[2018-11-23] MEDS: traZODone 50 MG TABLET PO SCH (22:03)
[2018-11-24] MEDS: PENICILLIN VK 500 MG TABLET PO SCH ×3 (00:08→13:03)
[2018-11-24] MEDS: CARVEDILOL 25 MG TABLET PO SCH (08:52)
[2018-11-24] MEDS: DOCUSATE SODIUM 100 MG CAPSULE PO SCH (08:53)
[2018-11-24] MEDS: INSULIN LISPRO 100 UNIT/ML SUBCUT SCH ×2 (08:53→12:47)
[2018-11-24] MEDS: LISINOPRIL 5 MG TABLET PO SCH (08:53)
[2018-11-24] MEDS: GABAPENTIN 100 MG CAPSULE PO SCH (08:53)
[2018-11-24] MEDS: PANTOPRAZOLE 40 MG TABLET PO SCH (08:53)
[2018-11-24] MEDS: glipiZIDE 5 MG TABLET PO SCH (08:53)
[2018-11-24] MEDS: ASPIRIN EC 81 MG TABLET PO SCH (08:53)
[2018-11-24] MEDS: PRASUGREL 10 MG TABLET PO SCH (08:53)
[2018-11-24] MEDS: SODIUM CHLORIDE 0.9% 1,000 ML IV SCH (10:41)
[2018-11-24 12:16] VITALS: BP 105/60
== END 2018-11-24 13:15 | disposition home or self-care (01) ==
LOC: N.ED 10:02 → N.EDINP 10:02 → N.TELEN 12:12
PROVIDERS: ADMIT Family Medicine; ATTEND Family Medicine

== ENCOUNTER 2019-08-11 13:43 | Inpatient (IN) ==
[2019-08-11] MEDS ORDERED: SODIUM CHLORIDE 0.9% 1,000 ML IV STA (14:48)
[2019-08-11 15:07] LABS: Basophils % 0.2 % (0.0-0.8); Eosinophils # 0.2 10*3/uL (0.0-0.87); Eosinophils % 1.1 % (0.00-10.9); Hematocrit 39.3 VOL% (42.0-52.0); Hemoglobin 13.3 GM/DL (14.0-18.0); Immature Granulocytes % 0.5 %; Immature Granulocytes Absolute 0.08 #; Lymphocytes # 1.4 10*3/uL (1.4-4.0); Lymphocytes % 8.5 % (21.2-54.2); Mean Corpuscular HGB Conc 33.8 GM/DL (32-36); Mean Corpuscular Volume 91.8 FL (87-102); Mean Platelet Volume 10.4 FL (9.6-12.0); Monocytes % 7.5 % (1.7-12.7); Neutrophils % 82.2 % (38.7-73.9); Platelet Count 195 T/CUMM (130-400); Red Blood Count 4.28 MC/CUMM (3.8-5.5); Red Cell Distribution Width 13.2 % (9.3-17.3); White Blood Count 16.6 T/CUMM (4-12)
[2019-08-11 15:21] LABS: Albumin 3.4 G/DL (3.4-5.0); Calcium 8.1 MG/DL (8.5-10.1); Osmolality,Calculated 281.2 MOS/KG (273-304)
[2019-08-11] MEDS ORDERED: ONDANSETRON 4 MG/2 ML VIAL IV PRN (17:08)
[2019-08-11] MEDS ORDERED: ACETAMINOPHEN 325 MG TABLET PO PRN (17:08)
[2019-08-11] MEDS ORDERED: DEXTROSE 50% 25 GM/50 ML VIAL IV PRN (17:08)
[2019-08-11] MEDS ORDERED: GLUCAGON 1 MG VIAL IM PRN (17:08)
[2019-08-11] MEDS: SODIUM CHLORIDE 0.9% 1,000 ML IV SCH (17:36)
[2019-08-11 17:55] LABS: CKMB % 2.1 %; Troponin I < 0.015 NG/ML (0.00-0.045)
[2019-08-11] MEDS: INSULIN REGULAR 100 UNIT/ML SUBCUT SCH ×2 (18:19→23:57)
[2019-08-11 18:20] LABS: Apearance,Urine CLEAR (Clear); Bilirubin,Urine Negative (Negative); Blood, Urine Negative (Negative); Glucose,Urine (UA) >=500 mg/dL (Negative); Hyaline Casts,Urine 13 /LPF (0-3); Ketones,Urine Negative (Negative); Mucus,Urine Occasional /LPF (Occasional); Nitrite,Urine Negative (Negative); Protein,Urine Negative; Urine Color Yellow (Yellow); Urine Specific Gravity 1.013 (1.001-1.035)
[2019-08-11] MEDS ORDERED: traZODone 50 MG TABLET PO SCH (21:00)
[2019-08-11] MEDS ORDERED: ROSUVASTATIN 20 MG TABLET PO SCH (21:00)
[2019-08-11] MEDS ORDERED: IMIPRAMINE 25 MG TABLET PO SCH (21:00)
[2019-08-11] MEDS: GABAPENTIN 300 MG CAPSULE PO SCH (21:39)
[2019-08-11] MEDS: RANOLAZINE 500 MG TABLET PO SCH (21:39)
[2019-08-11] MEDS: CILOSTAZOL 50 MG TABLET PO SCH (21:39)
[2019-08-11] MEDS: DOCUSATE SODIUM 100 MG CAPSULE PO SCH (21:40)
[2019-08-11] MEDS: carvediloL 25 MG TABLET PO SCH (21:45)
[2019-08-12] MEDS: SODIUM CHLORIDE 0.9% 1,000 ML IV SCH ×2 (01:52→15:21)
[2019-08-12 05:10] LABS: Basophils % 0.2 % (0.0-0.8); Eosinophils # 0.2 10*3/uL (0.0-0.87); Eosinophils % 2.6 % (0.00-10.9); Hematocrit 36.7 VOL% (42.0-52.0); Hemoglobin 12.3 GM/DL (14.0-18.0); Immature Granulocytes % 0.5 %; Immature Granulocytes Absolute 0.04 #; Lymphocytes # 1.8 10*3/uL (1.4-4.0); Lymphocytes % 21.3 % (21.2-54.2); Mean Corpuscular HGB Conc 33.5 GM/DL (32-36); Mean Corpuscular Volume 92.2 FL (87-102); Mean Platelet Volume 10.3 FL (9.6-12.0); Monocytes % 8.9 % (1.7-12.7); Neutrophils % 66.5 % (38.7-73.9); Platelet Count 170 T/CUMM (130-400); Red Blood Count 3.98 MC/CUMM (3.8-5.5); Red Cell Distribution Width 13.2 % (9.3-17.3); White Blood Count 8.6 T/CUMM (4-12)
[2019-08-12 05:42] LABS: Albumin 2.9 G/DL (3.4-5.0); Calcium 7.9 MG/DL (8.5-10.1); Osmolality,Calculated 286.8 MOS/KG (273-304); Risk Ratio 5.38; Total Protein 5.5 G/DL (6.4-8.3); VLDL CHOLESTEROL 48.2 MG/DL
[2019-08-12] MEDS: INSULIN REGULAR 100 UNIT/ML SUBCUT SCH ×3 (06:33→18:18)
[2019-08-12] MEDS ORDERED: INFLUENZA VIRUS VACCINE 0.5 ML SYRINGE IM ONE (09:00)
[2019-08-12] MEDS ORDERED: ISOSORBIDE MONONITRATE 30 MG TABLET PO SCH (09:00)
[2019-08-12] MEDS ORDERED: PANTOPRAZOLE 40 MG TABLET PO SCH (09:00)
[2019-08-12] MEDS ORDERED: BISOPROLOL 5 MG TABLET PO SCH (09:00)
[2019-08-12] MEDS ORDERED: hydroCHLOROthiazide 25 MG TABLET PO SCH (09:00)
[2019-08-12] MEDS ORDERED: PRASUGREL 10 MG TABLET PO SCH (09:00)
[2019-08-12] MEDS ORDERED: ASPIRIN EC 81 MG TABLET PO SCH (09:00)
[2019-08-12] MEDS: GABAPENTIN 300 MG CAPSULE PO SCH ×2 (09:49→15:20)
[2019-08-12] MEDS: CILOSTAZOL 50 MG TABLET PO SCH (09:49)
[2019-08-12] MEDS: RANOLAZINE 500 MG TABLET PO SCH (09:49)
[2019-08-12] MEDS: DOCUSATE SODIUM 100 MG CAPSULE PO SCH (09:49)
[2019-08-12] MEDS: carvediloL 25 MG TABLET PO SCH (09:49)
[2019-08-12] MEDS ORDERED: SODIUM CHLORIDE 0.9% 500 ML IV ONE (15:25)
[2019-08-12 20:08] VITALS: BP 116/68
== END 2019-08-12 20:16 | disposition home or self-care (01) | DRG 312 ==
LOC: EDUNIT# → EDBD → N.ED 13:43 → N.EDINP 16:31 → N.TELES 16:49
PROVIDERS: ADMIT Family Medicine; ATTEND Family Medicine

== ENCOUNTER 2019-09-07 12:01 | Observation (INO) ==
[2019-09-07] MEDS ORDERED: ASPIRIN 325 MG TABLET PO STA (12:44)
[2019-09-07] MEDS ORDERED: NITROGLYCERIN SL 0.4 MG TABLET SL PRN (12:44)
[2019-09-07] MEDS ORDERED: ENOXAPARIN 100 MG/ML SYRINGE SUBCUT STA (12:44)
[2019-09-07] MEDS ORDERED: ENOXAPARIN 120 MG/0.8 ML SYRINGE SUBCUT STA (12:46)
[2019-09-07 13:38] LABS: Basophils % 0.2 % (0.0-0.8); Eosinophils # 0.1 10*3/uL (0.0-0.87); Hematocrit 44.4 VOL% (42.0-52.0); Hemoglobin 15.5 GM/DL (14.0-18.0); Immature Granulocytes % 0.5 %; Immature Granulocytes Absolute 0.07 #; Lymphocytes # 1.4 10*3/uL (1.4-4.0); Lymphocytes % 10.1 % (21.2-54.2); Mean Corpuscular HGB Conc 34.9 GM/DL (32-36); Mean Corpuscular Volume 88.6 FL (87-102); Mean Platelet Volume 9.7 FL (9.6-12.0); Monocytes % 4.8 % (1.7-12.7); Neutrophils % 83.4 % (38.7-73.9); Platelet Count 211 T/CUMM (130-400); Red Blood Count 5.01 MC/CUMM (3.8-5.5); Red Cell Distribution Width 12.6 % (9.3-17.3); White Blood Count 13.4 T/CUMM (4-12)
[2019-09-07 13:58] LABS: Albumin 3.9 G/DL (3.4-5.0); Bilirubin,Total 0.5 MG/DL (0.2-1.0); Calcium 9.5 MG/DL (8.5-10.1); Osmolality,Calculated 280.5 MOS/KG (273-304); Total Protein 7.3 G/DL (6.4-8.3)
[2019-09-07] MEDS ORDERED: DEXTROSE 50% 25 GM/50 ML VIAL IV PRN ×2 (16:21→17:43)
[2019-09-07] MEDS ORDERED: GLUCAGON 1 MG VIAL IM PRN (16:21)
[2019-09-07] MEDS ORDERED: ACETAMINOPHEN 325 MG TABLET PO PRN (16:21)
[2019-09-07] MEDS ORDERED: ONDANSETRON 4 MG/2 ML VIAL IV PRN (16:21)
[2019-09-07] MEDS ORDERED: traZODone 50 MG TABLET PO SCH (21:00)
[2019-09-07] MEDS ORDERED: IMIPRAMINE 25 MG TABLET PO SCH (21:00)
[2019-09-07] MEDS ORDERED: ROSUVASTATIN 20 MG TABLET PO SCH (21:00)
[2019-09-07] MEDS: carvediloL 25 MG TABLET PO SCH (21:10)
[2019-09-07] MEDS: CILOSTAZOL 50 MG TABLET PO SCH (21:10)
[2019-09-07] MEDS: GABAPENTIN 300 MG CAPSULE PO SCH (21:10)
[2019-09-07] MEDS: INSULIN REGULAR 100 UNIT/ML SUBCUT SCH (21:15)
[2019-09-08] MEDS: INSULIN REGULAR 100 UNIT/ML SUBCUT SCH ×3 (01:17→09:50)
[2019-09-08 05:43] LABS: Basophils % 0.3 % (0.0-0.8); Eosinophils # 0.2 10*3/uL (0.0-0.87); Eosinophils % 2.1 % (0.00-10.9); Hematocrit 41.4 VOL% (42.0-52.0); Immature Granulocytes % 0.7 %; Immature Granulocytes Absolute 0.05 #; Mean Corpuscular HGB Conc 33.8 GM/DL (32-36); Mean Corpuscular Volume 91.8 FL (87-102); Monocytes % 9.6 % (1.7-12.7); Neutrophils % 59.3 % (38.7-73.9); Platelet Count 225 T/CUMM (130-400); Red Blood Count 4.51 MC/CUMM (3.8-5.5); Red Cell Distribution Width 12.8 % (9.3-17.3)
[2019-09-08 06:01] LABS: Calcium 8.7 MG/DL (8.5-10.1); Osmolality,Calculated 296.7 MOS/KG (273-304)
[2019-09-08] MEDS ORDERED: INSULIN ASPART PROTAMINE/ASPART 70/30 100 UNIT/ML SUBCUT SCH (07:30)
[2019-09-08] MEDS ORDERED: metFORMIN 500 MG TABLET PO SCH (08:00)
[2019-09-08] MEDS ORDERED: ISOSORBIDE MONONITRATE 30 MG TABLET PO SCH (09:00)
[2019-09-08] MEDS ORDERED: PRASUGREL 10 MG TABLET PO SCH (09:00)
[2019-09-08] MEDS ORDERED: LISINOPRIL 5 MG TABLET PO SCH (09:00)
[2019-09-08] MEDS ORDERED: ASPIRIN EC 81 MG TABLET PO SCH (09:00)
[2019-09-08] MEDS ORDERED: PANTOPRAZOLE 40 MG TABLET PO SCH (09:00)
[2019-09-08] MEDS ORDERED: ENOXAPARIN 120 MG/0.8 ML SYRINGE SUBCUT SCH (09:00)
[2019-09-08] MEDS ORDERED: DEXTROSE 50% 25 GM/50 ML VIAL IV PRN (09:50)
[2019-09-08] MEDS ORDERED: GLUCAGON 1 MG VIAL IM PRN (09:50)
[2019-09-08] MEDS: carvediloL 25 MG TABLET PO SCH (09:59)
[2019-09-08] MEDS: CILOSTAZOL 50 MG TABLET PO SCH (09:59)
[2019-09-08] MEDS: GABAPENTIN 300 MG CAPSULE PO SCH (09:59)
[2019-09-08 11:56] VITALS: BP 82/60
== END 2019-09-08 12:55 | disposition home or self-care (01) ==
LOC: EDUNIT# → EDBD → N.ED 12:01 → N.EDINP 12:01 → N.2E 16:10
PROVIDERS: ADMIT Family Medicine; ATTEND Family Medicine

== ENCOUNTER 2019-10-13 14:10 | Observation (INO) ==
[2019-10-13] MEDS ORDERED: LACTATED RINGERS 500 ML IV STA (14:35)
[2019-10-13] MEDS ORDERED: ONDANSETRON 4 MG/2 ML VIAL IV STA (14:35)
[2019-10-13 14:42] LABS: Basophils % 0.3 % (0.0-0.8); Eosinophils # 0.2 10*3/uL (0.0-0.87); Eosinophils % 1.5 % (0.00-10.9); Hematocrit 42.2 VOL% (42.0-52.0); Hemoglobin 14.1 GM/DL (14.0-18.0); Immature Granulocytes % 0.8 %; Immature Granulocytes Absolute 0.11 #; Lymphocytes # 1.6 10*3/uL (1.4-4.0); Lymphocytes % 11.4 % (21.2-54.2); Mean Corpuscular HGB Conc 33.4 GM/DL (32-36); Mean Corpuscular Volume 91.5 FL (87-102); Mean Platelet Volume 9.8 FL (9.6-12.0); Monocytes % 5.2 % (1.7-12.7); Neutrophils % 80.8 % (38.7-73.9); Platelet Count 199 T/CUMM (130-400); Red Blood Count 4.61 MC/CUMM (3.8-5.5); Red Cell Distribution Width 12.9 % (9.3-17.3); White Blood Count 14.3 T/CUMM (4-12)
[2019-10-13 15:03] LABS: Alanine Aminotransferase 54 U/L (16-61); Albumin 3.1 G/DL (3.4-5.0); Alkaline Phosphatase 69 U/L (45-117); Amylase 37 U/L (25-115); Aspartate Amino Transferase 55 U/L (0-37); Bilirubin,Total < 0.39 MG/DL (0.2-1.0); Blood Urea Nitrogen 29 MG/DL (7-18); Calcium 8.8 MG/DL (8.5-10.1); Estimated Glom Filtration Rate 98 ML/MIN; Glucose 94 MG/DL (74-106); Osmolality,Calculated 288.1 MOS/KG (273-304); Total Protein 6.2 G/DL (6.4-8.3)
[2019-10-13] MEDS ORDERED: DEXTROSE 50% 25 GM/50 ML SYRINGE IV ONE (15:49)
[2019-10-13] MEDS ORDERED: DEXTROSE 50% 25 GM/50 ML VIAL IV STA (15:50)
[2019-10-13] MEDS ORDERED: DEXTROSE 50% 25 GM/50 ML VIAL IV PRN (17:42)
[2019-10-13] MEDS ORDERED: GLUCAGON 1 MG VIAL IM PRN (17:42)
[2019-10-13] MEDS ORDERED: ONDANSETRON 4 MG/2 ML VIAL IV PRN (17:42)
[2019-10-13] MEDS ORDERED: ACETAMINOPHEN 325 MG TABLET PO PRN (17:42)
[2019-10-13] MEDS ORDERED: traMADol 50 MG TABLET PO PRN (17:58)
[2019-10-13] MEDS ORDERED: INSULIN REGULAR 100 UNIT/ML SUBCUT SCH (18:00)
[2019-10-13] MEDS: KETOROLAC 30 MG/1 ML VIAL IV SCH (18:19)
[2019-10-13] MEDS: SODIUM CHLORIDE 0.9% 1,000 ML IV SCH (18:20)
[2019-10-13 18:52] LABS: Troponin I < 0.015 NG/ML (0.00-0.045)
[2019-10-13] MEDS ORDERED: NITROGLYCERIN SL 0.4 MG TABLET SL PRN (19:35)
[2019-10-13 20:35] LABS: Apearance,Urine CLEAR (Clear); Bilirubin,Urine Negative (Negative); Blood, Urine Negative (Negative); Glucose,Urine (UA) >=500 mg/dL (Negative); Ketones,Urine Negative (Negative); Mucus,Urine Occasional /LPF (Occasional); Nitrite,Urine Negative (Negative); Protein,Urine Negative; RBC,Urine 8 /HPF (0-4); Squamous Epithelial Cell,Urine Occasional /HPF (0-10); Urine Color Yellow (Yellow); Urine Specific Gravity 1.035 (1.001-1.035); Urine Urobilinogen < 2.0 EU/DL (0.2-1.0); WBC,Urine 1 /HPF (0-6)
[2019-10-13 20:42] LABS: Barbiturates Screen,Urine Negative (Negative); Benzodiazepines Screen,Urine Negative (Negative); Cannabinoid Screen,Urine Negative (Negative); Opiate Screen,Urine Negative (Negative); Phencyclidine Screen,Urine Negative (Negative)
[2019-10-13] MEDS: ceFAZolin 1,000 MG in SYRINGE 1 EACH IV SCH (22:12)
[2019-10-13] MEDS: DOCUSATE SODIUM 100 MG CAPSULE PO SCH (22:13)
[2019-10-13] MEDS: IMIPRAMINE 25 MG TABLET PO SCH (22:13)
[2019-10-13] MEDS: ROSUVASTATIN 20 MG TABLET PO SCH (22:13)
[2019-10-13] MEDS: traZODone 50 MG TABLET PO SCH (22:13)
[2019-10-13] MEDS: CILOSTAZOL 50 MG TABLET PO SCH (22:13)
[2019-10-13] MEDS: carvediloL 25 MG TABLET PO SCH (22:14)
[2019-10-13] MEDS: GABAPENTIN 300 MG CAPSULE PO SCH (22:14)
[2019-10-13] MEDS: INSULIN REGULAR 100 UNIT/ML SUBCUT SCH (22:15)
[2019-10-14] MEDS: INSULIN REGULAR 100 UNIT/ML SUBCUT SCH ×7 (00:05→21:04)
[2019-10-14] MEDS: HYDROmorphone 2 MG/1 ML VIAL IV PRN ×3 (04:10→18:37)
[2019-10-14 05:03] LABS: Basophils % 0.5 % (0.0-0.8); Eosinophils # 0.2 10*3/uL (0.0-0.87); Eosinophils % 2.7 % (0.00-10.9); Hematocrit 36.3 VOL% (42.0-52.0); Hemoglobin 12.1 GM/DL (14.0-18.0); Immature Granulocytes % 0.5 %; Immature Granulocytes Absolute 0.04 #; Lymphocytes # 1.8 10*3/uL (1.4-4.0); Lymphocytes % 21.1 % (21.2-54.2); Mean Corpuscular HGB Conc 33.3 GM/DL (32-36); Mean Platelet Volume 10.2 FL (9.6-12.0); Monocytes % 8.8 % (1.7-12.7); Neutrophils % 66.4 % (38.7-73.9); Platelet Count 182 T/CUMM (130-400); Red Blood Count 3.99 MC/CUMM (3.8-5.5); White Blood Count 8.4 T/CUMM (4-12)
[2019-10-14 05:27] LABS: Albumin 2.8 G/DL (3.4-5.0); Bilirubin,Total 0.6 MG/DL (0.2-1.0); Calcium 8.3 MG/DL (8.5-10.1); Osmolality,Calculated 294.1 MOS/KG (273-304); Total Protein 5.6 G/DL (6.4-8.3)
[2019-10-14] MEDS ORDERED: KETOROLAC 30 MG/1 ML VIAL IV SCH (07:30)
[2019-10-14] MEDS: SODIUM CHLORIDE 0.9% 1,000 ML IV SCH ×2 (07:47→22:22)
[2019-10-14] MEDS: ceFAZolin 1,000 MG in SYRINGE 1 EACH IV SCH ×3 (07:48→22:19)
[2019-10-14] MEDS: KETOROLAC 30 MG/1 ML VIAL IV SCH (07:51)
[2019-10-14] MEDS: ISOSORBIDE MONONITRATE 30 MG TABLET PO SCH (09:57)
[2019-10-14] MEDS: carvediloL 25 MG TABLET PO SCH ×2 (09:57→20:56)
[2019-10-14] MEDS: LISINOPRIL 5 MG TABLET PO SCH (09:57)
[2019-10-14] MEDS: INSULIN GLARGINE 100 UNIT/ML SUBCUT SCH (09:58)
[2019-10-14] MEDS: ASPIRIN EC 81 MG TABLET PO SCH (09:58)
[2019-10-14] MEDS: DOCUSATE SODIUM 100 MG CAPSULE PO SCH ×2 (09:58→20:56)
[2019-10-14] MEDS: GABAPENTIN 300 MG CAPSULE PO SCH ×3 (09:58→20:57)
[2019-10-14] MEDS: PANTOPRAZOLE 40 MG VIAL IV SCH (10:07)
[2019-10-14] MEDS: CILOSTAZOL 50 MG TABLET PO SCH ×2 (10:09→20:56)
[2019-10-14] MEDS: PRASUGREL 10 MG TABLET PO SCH (10:10)
[2019-10-14] MEDS: ACETAMINOPHEN 325 MG TABLET PO PRN (15:07)
[2019-10-14] MEDS: IMIPRAMINE 25 MG TABLET PO SCH (20:56)
[2019-10-14] MEDS: ROSUVASTATIN 20 MG TABLET PO SCH (20:56)
[2019-10-14] MEDS: traZODone 50 MG TABLET PO SCH (20:56)
[2019-10-15] MEDS: HYDROmorphone 2 MG/1 ML VIAL IV PRN (00:02)
[2019-10-15] MEDS: INSULIN REGULAR 100 UNIT/ML SUBCUT SCH ×3 (02:22→10:42)
[2019-10-15] MEDS: ceFAZolin 1,000 MG in SYRINGE 1 EACH IV SCH (06:47)
[2019-10-15] MEDS: carvediloL 25 MG TABLET PO SCH (08:09)
[2019-10-15] MEDS: ASPIRIN EC 81 MG TABLET PO SCH (08:09)
[2019-10-15] MEDS: PRASUGREL 10 MG TABLET PO SCH (08:09)
[2019-10-15] MEDS: LISINOPRIL 5 MG TABLET PO SCH (08:09)
[2019-10-15] MEDS: ACETAMINOPHEN 325 MG TABLET PO PRN (08:10)
[2019-10-15] MEDS: PANTOPRAZOLE 40 MG VIAL IV SCH (08:10)
[2019-10-15] MEDS: ISOSORBIDE MONONITRATE 30 MG TABLET PO SCH (08:10)
[2019-10-15] MEDS: GABAPENTIN 300 MG CAPSULE PO SCH (08:10)
[2019-10-15] MEDS: DOCUSATE SODIUM 100 MG CAPSULE PO SCH (08:10)
[2019-10-15] MEDS: CILOSTAZOL 50 MG TABLET PO SCH (08:10)
[2019-10-15] MEDS: INSULIN GLARGINE 100 UNIT/ML SUBCUT SCH (08:11)
[2019-10-15 12:23] VITALS: BP 110/57
== END 2019-10-15 12:27 | disposition home or self-care (01) ==
LOC: EDUNIT# → EDBD → N.ED 14:10 → N.EDINP 14:10 → N.2E 17:14
PROVIDERS: ADMIT Family Medicine; ATTEND Family Medicine

== ENCOUNTER 2019-12-04 08:46 | Observation (INO) ==
[2019-12-04] MEDS ORDERED: HYDROmorphone 2 MG/1 ML VIAL IV STA ×2 (09:36→11:35)
[2019-12-04] MEDS ORDERED: ONDANSETRON 4 MG/2 ML VIAL IV STA (09:36)
[2019-12-04] MEDS ORDERED: NITROGLYCERIN 2% OINT 1 INCH/GM PACK TOP STA (09:36)
[2019-12-04] MEDS ORDERED: ASPIRIN 325 MG TABLET PO STA (09:36)
[2019-12-04 10:36] LABS: Basophils % 0.4 % (0.0-0.8); Eosinophils # 0.2 10*3/uL (0.0-0.87); Eosinophils % 3.8 % (0.00-10.9); Hemoglobin 14.7 GM/DL (14.0-18.0); Immature Granulocytes % 0.5 %; Immature Granulocytes Absolute 0.03 #; Lymphocytes # 1.2 10*3/uL (1.4-4.0); Mean Corpuscular HGB Conc 34.2 GM/DL (32-36); Mean Corpuscular Volume 89.4 FL (87-102); Mean Platelet Volume 9.9 FL (9.6-12.0); Monocytes % 10.9 % (1.7-12.7); Neutrophils % 62.4 % (38.7-73.9); Platelet Count 193 T/CUMM (130-400); Red Blood Count 4.81 MC/CUMM (3.8-5.5); Red Cell Distribution Width 12.6 % (9.3-17.3); White Blood Count 5.5 T/CUMM (4-12)
[2019-12-04 10:40] LABS: INR 0.9; PT Patient Result 9.9 SECS (9.6-12.2)
[2019-12-04 11:30] LABS: Albumin 3.7 G/DL (3.4-5.0); Bilirubin,Total 0.5 MG/DL (0.2-1.0); Calcium 9.4 MG/DL (8.5-10.1); Osmolality,Calculated 283.1 MOS/KG (273-304)
[2019-12-04] MEDS ORDERED: DEXTROSE 50% 25 GM/50 ML VIAL IV PRN (13:42)
[2019-12-04] MEDS ORDERED: GLUCAGON 1 MG VIAL IM PRN (13:42)
[2019-12-04] MEDS ORDERED: GLUCAGON 1 MG VIAL SUBCUT PRN (13:42)
[2019-12-04] MEDS ORDERED: NITROGLYCERIN SL 0.4 MG TABLET SL PRN (13:42)
[2019-12-04] MEDS ORDERED: ACETAMINOPHEN 325 MG TABLET PO PRN (13:42)
[2019-12-04] MEDS ORDERED: ONDANSETRON 4 MG/2 ML VIAL IV PRN (13:42)
[2019-12-04] MEDS ORDERED: HYDROmorphone 2 MG/1 ML VIAL IV PRN (13:42)
[2019-12-04] MEDS ORDERED: SODIUM CHLORIDE 0.9% 1,000 ML IV SCH (13:42)
[2019-12-04] MEDS ORDERED: ENOXAPARIN 120 MG/0.8 ML SYRINGE SUBCUT SCH (15:00)
[2019-12-04 15:38] LABS: Apearance,Urine CLEAR (Clear); Bilirubin,Urine Negative (Negative); Blood, Urine Negative (Negative); Glucose,Urine (UA) >=500 mg/dL (Negative); Hyaline Casts,Urine 17 /LPF (0-3); Ketones,Urine Negative (Negative); Mucus,Urine Occasional /LPF (Occasional); Nitrite,Urine Negative (Negative); Protein,Urine Negative; Squamous Epithelial Cell,Urine Occasional /HPF (0-10); Urine Color Yellow (Yellow); Urine Specific Gravity 1.023 (1.001-1.035); Urine Urobilinogen < 2.0 EU/DL (0.2-1.0)
[2019-12-04] MEDS ORDERED: carvediloL 25 MG TABLET PO ONE (15:46)
[2019-12-04] MEDS: GABAPENTIN 300 MG CAPSULE PO SCH ×2 (16:02→21:04)
[2019-12-04] MEDS: ACETAMINOPHEN 325 MG TABLET PO SCH ×2 (16:38→21:04)
[2019-12-04] MEDS ORDERED: DEXTROSE 10% 25 GM/250 ML BAG IV PRN (17:04)
[2019-12-04] MEDS: traMADol 50 MG TABLET PO SCH ×2 (18:17→21:04)
[2019-12-04] MEDS ORDERED: ROSUVASTATIN 20 MG TABLET PO SCH (21:00)
[2019-12-04] MEDS ORDERED: traZODone 50 MG TABLET PO SCH (21:00)
[2019-12-04] MEDS ORDERED: INSULIN GLARGINE 100 UNIT/ML SUBCUT SCH (21:00)
[2019-12-04] MEDS ORDERED: metFORMIN 500 MG TABLET PO SCH (21:00)
[2019-12-04] MEDS ORDERED: IMIPRAMINE 25 MG TABLET PO SCH (21:00)
[2019-12-04] MEDS ORDERED: carvediloL 25 MG TABLET PO SCH (21:00)
[2019-12-04] MEDS: cilostazoL 50 MG TABLET PO SCH (21:04)
[2019-12-04] MEDS: carvediloL 25 MG TABLET PO SCH (21:04)
[2019-12-04] MEDS: DOCUSATE SODIUM 100 MG CAPSULE PO SCH (21:05)
[2019-12-04] MEDS: INSULIN REGULAR 100 UNIT/ML SUBCUT SCH (21:33)
[2019-12-05 03:52] LABS: Basophils % 0.3 % (0.0-0.8); Eosinophils # 0.2 10*3/uL (0.0-0.87); Eosinophils % 3.8 % (0.00-10.9); Hematocrit 39.6 VOL% (42.0-52.0); Hemoglobin 13.3 GM/DL (14.0-18.0); Immature Granulocytes % 0.3 %; Immature Granulocytes Absolute 0.02 #; Lymphocytes # 1.5 10*3/uL (1.4-4.0); Lymphocytes % 26.3 % (21.2-54.2); Mean Corpuscular HGB Conc 33.6 GM/DL (32-36); Mean Corpuscular Volume 90.8 FL (87-102); Mean Platelet Volume 9.8 FL (9.6-12.0); Monocytes % 13.2 % (1.7-12.7); Neutrophils % 56.1 % (38.7-73.9); Platelet Count 171 T/CUMM (130-400); Red Blood Count 4.36 MC/CUMM (3.8-5.5); Red Cell Distribution Width 12.9 % (9.3-17.3); White Blood Count 5.7 T/CUMM (4-12)
[2019-12-05 04:42] LABS: Albumin 3.3 G/DL (3.4-5.0); Bilirubin,Total 0.4 MG/DL (0.2-1.0); Calcium 8.6 MG/DL (8.5-10.1); Risk Ratio 4.12; Total Protein 6.2 G/DL (6.4-8.3); VLDL CHOLESTEROL 71.2 MG/DL
[2019-12-05] MEDS ORDERED: PRASUGREL 10 MG TABLET PO SCH (09:00)
[2019-12-05] MEDS ORDERED: PANTOPRAZOLE 40 MG VIAL IV SCH (09:00)
[2019-12-05] MEDS ORDERED: CHOLECALCIFEROL 1,000 UNIT TABLET PO SCH (09:00)
[2019-12-05] MEDS ORDERED: lisinopriL 2.5 MG TABLET PO SCH (09:00)
[2019-12-05] MEDS ORDERED: lisinopriL 5 MG TABLET PO SCH (09:00)
[2019-12-05] MEDS ORDERED: ASPIRIN EC 81 MG TABLET PO SCH (09:00)
[2019-12-05] MEDS ORDERED: ENOXAPARIN 40 MG/0.4 ML SYRINGE SUBCUT SCH (09:00)
[2019-12-05] MEDS ORDERED: ISOSORBIDE MONONITRATE 30 MG TABLET PO SCH (09:00)
[2019-12-05] MEDS ORDERED: MULTIVITAMIN (CENTRUM) TABLET PO SCH (09:00)
[2019-12-05] MEDS ORDERED: CLOPIDOGREL 75 MG TABLET PO SCH (09:00)
[2019-12-05] MEDS: INSULIN REGULAR 100 UNIT/ML SUBCUT SCH ×2 (10:11→12:56)
[2019-12-05] MEDS: carvediloL 25 MG TABLET PO SCH (10:13)
[2019-12-05] MEDS: GABAPENTIN 300 MG CAPSULE PO SCH (10:13)
[2019-12-05] MEDS: DOCUSATE SODIUM 100 MG CAPSULE PO SCH (10:14)
[2019-12-05] MEDS: cilostazoL 50 MG TABLET PO SCH (10:14)
[2019-12-05] MEDS: traMADol 50 MG TABLET PO SCH (10:15)
[2019-12-05] MEDS: ACETAMINOPHEN 325 MG TABLET PO SCH (10:16)
[2019-12-05 12:04] VITALS: BP 123/70
== END 2019-12-05 16:30 | disposition home or self-care (01) ==
LOC: N.EDINP 08:46 → N.ED 08:46 → N.2W 12:40
PROVIDERS: ADMIT Family Medicine; ATTEND Family Medicine

== ENCOUNTER 2020-05-14 22:30 | Inpatient (IN) ==
[2020-05-14 22:55] LABS: Basophils % 0.2 % (0.0-0.8); Eosinophils # 0.2 10*3/uL (0.0-0.87); Hematocrit 42.9 VOL% (42.0-52.0); Hemoglobin 14.6 GM/DL (14.0-18.0); Immature Granulocytes % 0.2 %; Immature Granulocytes Absolute 0.02 #; Lymphocytes # 2.3 10*3/uL (1.4-4.0); Lymphocytes % 28.6 % (21.2-54.2); Mean Platelet Volume 9.9 FL (9.6-12.0); Monocytes % 8.5 % (1.7-12.7); Neutrophils % 59.5 % (38.7-73.9); Platelet Count 175 T/CUMM (130-400); Red Blood Count 4.82 MC/CUMM (3.8-5.5); Red Cell Distribution Width 12.4 % (9.3-17.3); White Blood Count 8.1 T/CUMM (4-12)
[2020-05-14 23:09] LABS: PT Patient Result 10.6 SECS (9.8-11.9); Partial Thromboplastin Time 29.5 SECS (23.9-33.8)
[2020-05-14 23:15] LABS: Albumin 3.8 G/DL (3.4-5.0); Bilirubin,Total 0.5 MG/DL (0.2-1.0); Osmolality,Calculated 290.5 MOS/KG (273-304)
[2020-05-14] MEDS ORDERED: NITROGLYCERIN 2% OINT 1 INCH/GM PACK TOP STA (23:21)
[2020-05-14] MEDS ORDERED: ENOXAPARIN 100 MG/ML SYRINGE SUBCUT STA (23:21)
[2020-05-14] MEDS ORDERED: ASPIRIN 325 MG TABLET PO STA (23:21)
[2020-05-14] MEDS ORDERED: ONDANSETRON 4 MG/2 ML VIAL IV STA (23:21)
[2020-05-14] MEDS ORDERED: ALUM/MAG/SIMETH/LIDO VISC 1:1 30 ML BOTTLE PO STA (23:21)
[2020-05-14] MEDS ORDERED: HYDROmorphone 2 MG/1 ML VIAL ONE (23:28)
[2020-05-14] MEDS: NITROGLYCERIN 2% OINT 1 INCH/GM PACK TOP SCH (23:44)
[2020-05-14] MEDS ORDERED: HYDROmorphone 2 MG/1 ML VIAL IV STA (23:46)
[2020-05-15] MEDS ORDERED: GLUCAGON 1 MG VIAL IM PRN ×2 (00:04→17:27)
[2020-05-15] MEDS ORDERED: DEXTROSE 50% 25 GM/50 ML VIAL IV PRN ×2 (00:04→17:27)
[2020-05-15] MEDS ORDERED: ACETAMINOPHEN 325 MG TABLET PO PRN (00:04)
[2020-05-15] MEDS ORDERED: ONDANSETRON 4 MG/2 ML VIAL IV PRN (00:04)
[2020-05-15] MEDS ORDERED: MEPERIDINE 25 MG/1 ML VIAL IV ONE (00:44)
[2020-05-15] MEDS: SODIUM CHLORIDE 0.9% 1,000 ML IV SCH ×2 (00:52→17:55)
[2020-05-15 05:16] LABS: Basophils % 0.4 % (0.0-0.8); Eosinophils # 0.3 10*3/uL (0.0-0.87); Eosinophils % 3.9 % (0.00-10.9); Hematocrit 41.7 VOL% (42.0-52.0); Hemoglobin 14.1 GM/DL (14.0-18.0); Immature Granulocytes % 0.4 %; Immature Granulocytes Absolute 0.03 #; Lymphocytes # 2.7 10*3/uL (1.4-4.0); Lymphocytes % 31.5 % (21.2-54.2); Mean Corpuscular HGB Conc 33.8 GM/DL (32-36); Mean Corpuscular Volume 89.5 FL (87-102); Mean Platelet Volume 10.5 FL (9.6-12.0); Monocytes % 9.1 % (1.7-12.7); Neutrophils % 54.7 % (38.7-73.9); Platelet Count 182 T/CUMM (130-400); Red Blood Count 4.66 MC/CUMM (3.8-5.5); Red Cell Distribution Width 12.6 % (9.3-17.3); White Blood Count 8.6 T/CUMM (4-12)
[2020-05-15] MEDS ORDERED: HYDROmorphone 2 MG/1 ML VIAL IV ONE (05:30)
[2020-05-15 07:22] LABS: Albumin 3.5 G/DL (3.4-5.0); Bilirubin,Total 0.5 MG/DL (0.2-1.0); Calcium 8.6 MG/DL (8.5-10.1); Osmolality,Calculated 286.5 MOS/KG (273-304); Risk Ratio 2.65; Total Protein 6.9 G/DL (6.4-8.3); VLDL CHOLESTEROL 32.2 MG/DL
[2020-05-15] MEDS: INSULIN REGULAR 100 UNIT/ML SUBCUT SCH ×5 (07:49→22:48)
[2020-05-15] MEDS: NITROGLYCERIN 2% OINT 1 INCH/GM PACK TOP SCH ×3 (08:08→18:15)
[2020-05-15] MEDS: HYDROmorphone 2 MG/1 ML VIAL IV PRN ×3 (08:25→21:37)
[2020-05-15] MEDS: DOCUSATE SODIUM 100 MG CAPSULE PO SCH ×2 (09:32→21:36)
[2020-05-15] MEDS: PANTOPRAZOLE 40 MG TABLET PO SCH (09:54)
[2020-05-15] MEDS ORDERED: ENOXAPARIN 120 MG/0.8 ML SYRINGE SUBCUT SCH (12:00)
[2020-05-15 12:34] LABS: CKMB % 2.4 %; Troponin I < 0.015 NG/ML (0.00-0.045)
[2020-05-15] MEDS ORDERED: CLOPIDOGREL 75 MG TABLET PO SCH (13:00)
[2020-05-15] MEDS: carvediloL 25 MG TABLET PO SCH ×2 (13:15→21:36)
[2020-05-15] MEDS: cilostazoL 100 MG TABLET PO SCH ×2 (13:19→21:36)
[2020-05-15] MEDS ORDERED: DIAZEPAM 5 MG TABLET PO ONE (13:46)
[2020-05-15] MEDS ORDERED: diphenhydrAMINE CAP 25 MG CAPSULE PO ONE (13:46)
[2020-05-15] MEDS ORDERED: MAGNESIUM SULF RIDER 2 GM in PREMIX 1 EACH IV PRN (13:46)
[2020-05-15] MEDS ORDERED: POTASSIUM CHLORIDE RIDER 10 MEQ in PREMIX 1 EACH IV PRN (13:46)
[2020-05-15] MEDS: GABAPENTIN 300 MG CAPSULE PO SCH ×2 (15:42→21:36)
[2020-05-15] MEDS ORDERED: LIDOCAINE 1% 20 ML VIAL ONE (15:52)
[2020-05-15] MEDS ORDERED: fentaNYL 100 MCG/2 ML VIAL ONE (15:53)
[2020-05-15] MEDS ORDERED: MIDAZOLAM 2 MG/2 ML VIAL ONE (15:53)
[2020-05-15] MEDS ORDERED: INSULIN ASPART U SUBCUT SCH (20:45)
[2020-05-15] MEDS: ROSUVASTATIN 20 MG TABLET PO SCH (21:36)
[2020-05-15] MEDS: ENOXAPARIN 40 MG/0.4 ML SYRINGE SUBCUT SCH (21:36)
[2020-05-15] MEDS: BISOPROLOL 5 MG TABLET PO SCH (21:36)
[2020-05-15] MEDS: traZODone 50 MG TABLET PO SCH (21:36)
[2020-05-15] MEDS: IMIPRAMINE 25 MG TABLET PO SCH (21:37)
[2020-05-16] MEDS: NITROGLYCERIN 2% OINT 1 INCH/GM PACK TOP SCH ×4 (00:26→17:40)
[2020-05-16 04:59] LABS: Basophils % 0.3 % (0.0-0.8); Eosinophils # 0.3 10*3/uL (0.0-0.87); Eosinophils % 4.1 % (0.00-10.9); Hematocrit 40.9 VOL% (42.0-52.0); Hemoglobin 13.4 GM/DL (14.0-18.0); Immature Granulocytes % 0.4 %; Immature Granulocytes Absolute 0.03 #; Lymphocytes # 1.8 10*3/uL (1.4-4.0); Lymphocytes % 25.8 % (21.2-54.2); Mean Corpuscular HGB Conc 32.8 GM/DL (32-36); Mean Corpuscular Volume 91.1 FL (87-102); Mean Platelet Volume 10.3 FL (9.6-12.0); Monocytes % 9.5 % (1.7-12.7); Neutrophils % 59.9 % (38.7-73.9); Platelet Count 172 T/CUMM (130-400); Red Blood Count 4.49 MC/CUMM (3.8-5.5); Red Cell Distribution Width 12.5 % (9.3-17.3); White Blood Count 7.1 T/CUMM (4-12)
[2020-05-16 05:15] LABS: Calcium 8.6 MG/DL (8.5-10.1); Osmolality,Calculated 284.5 MOS/KG (273-304)
[2020-05-16] MEDS: INSULIN REGULAR 100 UNIT/ML SUBCUT SCH ×4 (05:28→23:52)
[2020-05-16] MEDS: ISOSORBIDE MONONITRATE 30 MG TABLET PO SCH (08:31)
[2020-05-16] MEDS: GABAPENTIN 300 MG CAPSULE PO SCH ×3 (08:31→21:29)
[2020-05-16] MEDS: cilostazoL 100 MG TABLET PO SCH ×2 (08:31→21:29)
[2020-05-16] MEDS: PANTOPRAZOLE 40 MG TABLET PO SCH (08:32)
[2020-05-16] MEDS: BISOPROLOL 5 MG TABLET PO SCH ×3 (08:32→21:28)
[2020-05-16] MEDS: ASPIRIN EC 81 MG TABLET PO SCH (08:32)
[2020-05-16] MEDS: MULTIVITAMIN (CENTRUM) TABLET PO SCH (08:32)
[2020-05-16] MEDS: carvediloL 25 MG TABLET PO SCH ×2 (08:32→21:29)
[2020-05-16] MEDS: DOCUSATE SODIUM 100 MG CAPSULE PO SCH ×2 (08:32→21:29)
[2020-05-16] MEDS: ENOXAPARIN 40 MG/0.4 ML SYRINGE SUBCUT SCH (11:15)
[2020-05-16] MEDS ORDERED: INSULIN LISPRO 100 UNIT/ML SUBCUT SCH (12:30)
[2020-05-16] MEDS: NITROGLYCERIN SL 0.4 MG TABLET SL PRN ×3 (14:29→14:41)
[2020-05-16] MEDS: HYDROmorphone 2 MG/1 ML VIAL IV PRN (14:41)
[2020-05-16] MEDS ORDERED: ENOXAPARIN 40 MG/0.4 ML SYRINGE SUBCUT SCH (15:06)
[2020-05-16] MEDS ORDERED: ENOXAPARIN 60 MG/0.6 ML SYRINGE SUBCUT ONE (15:06)
[2020-05-16] MEDS ORDERED: PSYLLIUM POWDER 3.7 GM/PACK PO PRN (15:07)
[2020-05-16] MEDS: POLYETHYLENE GLYCOL POWDER 17 GM PACK PO PRN (15:32)
[2020-05-16] MEDS: HYDROmorphone 2 MG TABLET PO PRN (21:28)
[2020-05-16] MEDS: ENOXAPARIN 100 MG/ML SYRINGE SUBCUT SCH (21:28)
[2020-05-16] MEDS: IMIPRAMINE 25 MG TABLET PO SCH (21:29)
[2020-05-16] MEDS: ROSUVASTATIN 20 MG TABLET PO SCH (21:29)
[2020-05-16] MEDS: traZODone 50 MG TABLET PO SCH (21:29)
[2020-05-17] MEDS: NITROGLYCERIN 2% OINT 1 INCH/GM PACK TOP SCH ×4 (00:22→17:58)
[2020-05-17] MEDS: INSULIN REGULAR 100 UNIT/ML SUBCUT SCH ×3 (05:51→18:57)
[2020-05-17 06:10] LABS: Basophils % 0.3 % (0.0-0.8); Eosinophils # 0.3 10*3/uL (0.0-0.87); Eosinophils % 5.1 % (0.00-10.9); Hematocrit 38.7 VOL% (42.0-52.0); Immature Granulocytes % 0.3 %; Immature Granulocytes Absolute 0.02 #; Lymphocytes # 1.7 10*3/uL (1.4-4.0); Lymphocytes % 29.4 % (21.2-54.2); Mean Corpuscular HGB Conc 33.6 GM/DL (32-36); Mean Corpuscular Volume 89.6 FL (87-102); Mean Platelet Volume 9.6 FL (9.6-12.0); Monocytes % 10.5 % (1.7-12.7); Neutrophils % 54.4 % (38.7-73.9); Platelet Count 156 T/CUMM (130-400); Red Blood Count 4.32 MC/CUMM (3.8-5.5); Red Cell Distribution Width 12.5 % (9.3-17.3); White Blood Count 5.9 T/CUMM (4-12)
[2020-05-17 06:26] LABS: Calcium 8.6 MG/DL (8.5-10.1); Osmolality,Calculated 286.5 MOS/KG (273-304)
[2020-05-17] MEDS: HYDROmorphone 2 MG TABLET PO PRN ×2 (08:15→22:38)
[2020-05-17] MEDS: ASPIRIN EC 81 MG TABLET PO SCH (08:16)
[2020-05-17] MEDS: GABAPENTIN 300 MG CAPSULE PO SCH ×3 (08:16→20:42)
[2020-05-17] MEDS: carvediloL 25 MG TABLET PO SCH ×2 (08:17→20:41)
[2020-05-17] MEDS: ISOSORBIDE MONONITRATE 30 MG TABLET PO SCH (08:17)
[2020-05-17] MEDS: MULTIVITAMIN (CENTRUM) TABLET PO SCH (08:18)
[2020-05-17] MEDS: BISOPROLOL 5 MG TABLET PO SCH ×2 (08:18→20:45)
[2020-05-17] MEDS: PANTOPRAZOLE 40 MG TABLET PO SCH (08:18)
[2020-05-17] MEDS: ENOXAPARIN 100 MG/ML SYRINGE SUBCUT SCH (08:19)
[2020-05-17] MEDS: DOCUSATE SODIUM 100 MG CAPSULE PO SCH ×2 (08:19→20:41)
[2020-05-17] MEDS: cilostazoL 100 MG TABLET PO SCH ×2 (09:14→20:42)
[2020-05-17] MEDS: TICAGRELOR 90 MG TABLET PO SCH ×2 (09:14→20:42)
[2020-05-17] MEDS: NITROGLYCERIN SL 0.4 MG TABLET SL PRN (09:16)
[2020-05-17] MEDS: POLYETHYLENE GLYCOL POWDER 17 GM PACK PO PRN (14:17)
[2020-05-17] MEDS: ROSUVASTATIN 20 MG TABLET PO SCH (20:40)
[2020-05-17] MEDS: IMIPRAMINE 25 MG TABLET PO SCH (20:40)
[2020-05-17] MEDS: traZODone 50 MG TABLET PO SCH (20:43)
[2020-05-17] MEDS ORDERED: ENOXAPARIN 60 MG/0.6 ML SYRINGE SUBCUT SCH (21:00)
[2020-05-18] MEDS: NITROGLYCERIN 2% OINT 1 INCH/GM PACK TOP SCH ×2 (00:30→06:25)
[2020-05-18] MEDS: INSULIN REGULAR 100 UNIT/ML SUBCUT SCH ×2 (02:08→06:09)
[2020-05-18 08:35] VITALS: BP 135/84
[2020-05-20] MEDS ORDERED: SODIUM CHLORIDE 0.45% 1,000 ML IV SCH (06:00)
[2020-05-20] MEDS ORDERED: DIAZEPAM 5 MG TABLET PO ONE (08:00)
[2020-05-20] MEDS ORDERED: diphenhydrAMINE CAP 25 MG CAPSULE PO ONE (08:00)
== END 2020-05-18 09:23 | disposition home or self-care, planned readmission (81) | DRG 287 ==
LOC: N.ED 22:30 → N.EDINP 23:38 → N.2W 05-15 10:41 → N.TELEN 05-15 12:53
PROVIDERS: ADMIT Family Medicine; ATTEND Family Medicine

== ENCOUNTER 2021-12-01 12:00 | Observation (INO) ==
[2021-12-01 12:35] LABS: Basophils % 0.3 % (0.0-0.8); Eosinophils # 0.3 10*3/uL (0.0-0.87); Eosinophils % 3.9 % (0.00-10.9); Hematocrit 47.3 VOL% (42.0-52.0); Hemoglobin 15.9 GM/DL (14.0-18.0); Immature Granulocytes % 0.5 %; Immature Granulocytes Absolute 0.04 #; Lymphocytes # 2.1 10*3/uL (1.4-4.0); Lymphocytes % 26.9 % (21.2-54.2); Mean Corpuscular HGB Conc 33.6 GM/DL (32-36); Mean Corpuscular Volume 91.1 FL (87-102); Mean Platelet Volume 9.4 FL (9.6-12.0); Neutrophils % 59.4 % (38.7-73.9); Platelet Count 214 T/CUMM (130-400); Red Blood Count 5.19 MC/CUMM (3.8-5.5); Red Cell Distribution Width 13.1 % (9.3-17.3); White Blood Count 7.8 T/CUMM (4-12)
[2021-12-01 12:56] LABS: Albumin 4.1 G/DL (3.4-5.0); Bilirubin,Total 0.6 MG/DL (0.20-1.00); Osmolality,Calculated 280.7 MOS/KG (273-304); Potassium 4.3 MMOL/L (3.5-5.1); Total Protein 7.3 G/DL (6.4-8.2)
[2021-12-01] MEDS ORDERED: ENOXAPARIN 120 MG/0.8 ML SYRINGE SUBCUT STA (14:01)
[2021-12-01] MEDS ORDERED: HYDROmorphone 2 MG/1 ML VIAL IV STA (14:01)
[2021-12-01] MEDS ORDERED: ASPIRIN 325 MG TABLET PO STA (14:01)
[2021-12-01] MEDS ORDERED: ONDANSETRON 4 MG/2 ML VIAL IV STA (14:01)
[2021-12-01] MEDS ORDERED: NITROGLYCERIN 2% OINT 1 INCH/GM PACK TOP ONE (14:17)
[2021-12-01] MEDS ORDERED: NITROGLYCERIN 2% OINT 1 INCH/GM PACK TOP STA (14:17)
[2021-12-01] MEDS ORDERED: MAGNESIUM SULF RIDER 4 GM/100 ML PREMIX IV PRN (14:35)
[2021-12-01] MEDS ORDERED: MAGNESIUM SULF RIDER 2 GM/50 ML PREMIX IV PRN (14:35)
[2021-12-01] MEDS ORDERED: GLUCAGON 1 MG VIAL IM PRN (14:35)
[2021-12-01] MEDS ORDERED: ALUMINUM/MAGNES/SIMETH MAX STR 30 ML UDCUP PO PRN (14:42)
[2021-12-01] MEDS ORDERED: NITROGLYCERIN SL 0.4 MG TABLET SL PRN (14:42)
[2021-12-01] MEDS ORDERED: ACETAMINOPHEN 325 MG TABLET PO PRN (14:42)
[2021-12-01] MEDS ORDERED: ONDANSETRON 4 MG/2 ML VIAL IV PRN (14:42)
[2021-12-01] MEDS ORDERED: DEXTROSE 10% 25 GM/250 ML BAG IV PRN (14:56)
[2021-12-01 16:50] LABS: CKMB % 2.8 %; High Sensitive Troponin I* 28.5 ng/L (0-78)
[2021-12-01] MEDS: HYDROmorphone 2 MG/1 ML VIAL IV PRN ×2 (17:21→21:44)
[2021-12-01] MEDS: INSULIN REGULAR 100 UNIT/ML SUBCUT SCH ×2 (18:21→22:02)
[2021-12-01] MEDS ORDERED: IMIPRAMINE 25 MG TABLET PO SCH (21:00)
[2021-12-01] MEDS ORDERED: carvediloL 25 MG TABLET PO SCH (21:00)
[2021-12-01] MEDS: ROSUVASTATIN 20 MG TABLET PO SCH (21:44)
[2021-12-01] MEDS: ALUM/MAG/SIMETH/LIDO VISC 1:1 30 ML BOTTLE PO SCH (21:44)
[2021-12-01] MEDS: carvediloL 25 MG TABLET PO SCH (21:44)
[2021-12-01] MEDS: OMEGA 3 ACID ETHYL ESTERS 1 GM CAPSULE PO SCH (21:44)
[2021-12-01] MEDS: GABAPENTIN 400 MG CAPSULE PO SCH (21:44)
[2021-12-01] MEDS: IMIPRAMINE 25 MG TABLET PO SCH ×2 (21:52→21:55)
[2021-12-01] MEDS: DILTIAZEM 30 MG TABLET PO SCH ×2 (21:52→21:53)
[2021-12-01] MEDS: BRIMONIDINE 0.2% OPH SOLN 5 ML BOTTLE BOTH EYES SCH (21:54)
[2021-12-01] MEDS: traZODone 50 MG TABLET PO SCH (22:00)
[2021-12-01] MEDS: cilostazoL 50 MG TABLET PO SCH (22:00)
[2021-12-02] MEDS ORDERED: ENOXAPARIN 100 MG/ML SYRINGE SUBCUT ONE (02:00)
[2021-12-02] MEDS ORDERED: ENOXAPARIN 30 MG/0.3 ML SYRINGE SUBCUT ONE ×2 (02:00)
[2021-12-02] MEDS: HYDROmorphone 2 MG/1 ML VIAL IV PRN (02:22)
[2021-12-02] MEDS ORDERED: DIAZEPAM 5 MG TABLET PO ONE (06:00)
[2021-12-02] MEDS ORDERED: diphenhydrAMINE CAP 25 MG CAPSULE PO ONE (06:00)
[2021-12-02] MEDS ORDERED: SODIUM CHLORIDE 0.45% 1,000 ML IV SCH (06:00)
[2021-12-02] MEDS ORDERED: LIDOCAINE 1% 20 ML VIAL ONE (06:52)
[2021-12-02] MEDS ORDERED: MIDAZOLAM 2 MG/2 ML VIAL ONE (07:22)
[2021-12-02] MEDS ORDERED: fentaNYL 100 MCG/2 ML VIAL ONE (07:22)
[2021-12-02] MEDS ORDERED: HEPARIN 5,000 UNIT/1 ML VIAL ONE (07:34)
[2021-12-02] MEDS ORDERED: TIROFIBAN 5,000 MCG/100 ML PREMIX IV ONE (08:23)
[2021-12-02] MEDS ORDERED: CLOPIDOGREL 75 MG TABLET PO SCH (09:00)
[2021-12-02] MEDS ORDERED: TICAGRELOR 90 MG TABLET ONE (09:28)
[2021-12-02 10:02] LABS: Basophils % 0.2 % (0.0-0.8); Eosinophils # 0.2 10*3/uL (0.0-0.87); Eosinophils % 3.4 % (0.00-10.9); Hematocrit 43.1 VOL% (42.0-52.0); Hemoglobin 14.6 GM/DL (14.0-18.0); Immature Granulocytes % 0.6 %; Immature Granulocytes Absolute 0.03 #; Lymphocytes # 1.3 10*3/uL (1.4-4.0); Lymphocytes % 26.1 % (21.2-54.2); Mean Corpuscular HGB Conc 33.9 GM/DL (32-36); Mean Corpuscular Volume 91.9 FL (87-102); Mean Platelet Volume 9.4 FL (9.6-12.0); Monocytes % 8.9 % (1.7-12.7); Neutrophils % 60.8 % (38.7-73.9); Platelet Count 158 T/CUMM (130-400); Red Blood Count 4.69 MC/CUMM (3.8-5.5); Red Cell Distribution Width 13.3 % (9.3-17.3)
[2021-12-02 10:22] LABS: Calcium 8.8 MG/DL (8.5-10.1); Osmolality,Calculated 268.5 MOS/KG (273-304); Potassium 4.7 MMOL/L (3.5-5.1)
[2021-12-02 10:24] LABS: Risk Ratio 3.14; VLDL Cholesterol 45.6 MG/DL
[2021-12-02] MEDS: ISOSORBIDE MONONITRATE 30 MG TABLET PO SCH (11:18)
[2021-12-02] MEDS: DILTIAZEM 30 MG TABLET PO SCH ×4 (11:19→20:37)
[2021-12-02] MEDS: FUROSEMIDE 20 MG TABLET PO SCH (11:19)
[2021-12-02] MEDS: carvediloL 25 MG TABLET PO SCH ×2 (11:20→20:37)
[2021-12-02] MEDS: MULTIVITAMIN (CENTRUM) TABLET PO SCH (11:20)
[2021-12-02] MEDS: ASPIRIN EC 81 MG TABLET PO SCH (11:20)
[2021-12-02] MEDS: cilostazoL 50 MG TABLET PO SCH ×2 (11:21→20:39)
[2021-12-02] MEDS: GABAPENTIN 400 MG CAPSULE PO SCH ×3 (11:21→20:36)
[2021-12-02] MEDS: PANTOPRAZOLE 40 MG TABLET PO SCH (11:21)
[2021-12-02] MEDS: TAMSULOSIN 0.4 MG CAPSULE PO SCH (11:22)
[2021-12-02] MEDS: OMEGA 3 ACID ETHYL ESTERS 1 GM CAPSULE PO SCH ×2 (11:22→20:38)
[2021-12-02] MEDS: BRIMONIDINE 0.2% OPH SOLN 5 ML BOTTLE BOTH EYES SCH ×2 (11:23→20:45)
[2021-12-02] MEDS: ALUM/MAG/SIMETH/LIDO VISC 1:1 30 ML BOTTLE PO SCH ×3 (11:24→20:38)
[2021-12-02] MEDS ORDERED: SODIUM CHLORIDE 0.9% 1,000 ML IV SCH (14:00)
[2021-12-02] MEDS: INSULIN REGULAR 100 UNIT/ML SUBCUT SCH ×3 (15:08→21:28)
[2021-12-02] MEDS ORDERED: traMADol 50 MG TABLET PO PRN (19:45)
[2021-12-02] MEDS: traZODone 50 MG TABLET PO SCH (20:36)
[2021-12-02] MEDS: ROSUVASTATIN 20 MG TABLET PO SCH (20:37)
[2021-12-02] MEDS: TICAGRELOR 90 MG TABLET PO SCH (20:38)
[2021-12-02] MEDS: IMIPRAMINE 25 MG TABLET PO SCH (20:38)
[2021-12-03 06:42] LABS: Basophils % 0.3 % (0.0-0.8); Eosinophils # 0.2 10*3/uL (0.0-0.87); Hemoglobin 13.9 GM/DL (14.0-18.0); Immature Granulocytes % 0.8 %; Immature Granulocytes Absolute 0.06 #; Lymphocytes # 1.4 10*3/uL (1.4-4.0); Mean Corpuscular HGB Conc 33.9 GM/DL (32-36); Mean Corpuscular Volume 91.3 FL (87-102); Mean Platelet Volume 9.8 FL (9.6-12.0); Monocytes % 11.4 % (1.7-12.7); Neutrophils % 68.5 % (38.7-73.9); Platelet Count 167 T/CUMM (130-400); Red Blood Count 4.49 MC/CUMM (3.8-5.5); Red Cell Distribution Width 13.2 % (9.3-17.3); White Blood Count 7.9 T/CUMM (4-12)
[2021-12-03 07:00] LABS: Calcium 8.7 MG/DL (8.5-10.1); Osmolality,Calculated 287.4 MOS/KG (273-304); Potassium 4.3 MMOL/L (3.5-5.1)
[2021-12-03] MEDS ORDERED: LACTULOSE 20 GM/30 ML UDCUP PO ONE (08:12)
[2021-12-03] MEDS: INSULIN REGULAR 100 UNIT/ML SUBCUT SCH ×2 (08:15→13:06)
[2021-12-03] MEDS: BRIMONIDINE 0.2% OPH SOLN 5 ML BOTTLE BOTH EYES SCH (08:16)
[2021-12-03] MEDS: DILTIAZEM 30 MG TABLET PO SCH (08:16)
[2021-12-03] MEDS: ASPIRIN EC 81 MG TABLET PO SCH (08:16)
[2021-12-03] MEDS: TICAGRELOR 90 MG TABLET PO SCH (08:16)
[2021-12-03] MEDS: TAMSULOSIN 0.4 MG CAPSULE PO SCH (08:17)
[2021-12-03] MEDS: MULTIVITAMIN (CENTRUM) TABLET PO SCH (08:17)
[2021-12-03] MEDS: ALUM/MAG/SIMETH/LIDO VISC 1:1 30 ML BOTTLE PO SCH (08:17)
[2021-12-03] MEDS: carvediloL 25 MG TABLET PO SCH (08:17)
[2021-12-03] MEDS: OMEGA 3 ACID ETHYL ESTERS 1 GM CAPSULE PO SCH (08:18)
[2021-12-03] MEDS: cilostazoL 50 MG TABLET PO SCH (08:18)
[2021-12-03] MEDS: ISOSORBIDE MONONITRATE 30 MG TABLET PO SCH (08:18)
[2021-12-03] MEDS: GABAPENTIN 400 MG CAPSULE PO SCH (08:18)
[2021-12-03] MEDS: FUROSEMIDE 20 MG TABLET PO SCH (08:18)
[2021-12-03] MEDS: PANTOPRAZOLE 40 MG TABLET PO SCH (08:18)
[2021-12-03 13:05] VITALS: BP 131/70
== END 2021-12-03 12:39 | disposition home or self-care (01) ==
LOC: N.ED 12:00 → N.EDINP 12:00 → N.TELES 18:33
PROVIDERS: ADMIT Internal Medicine Cardiovascular Disease; ATTEND Internal Medicine Cardiovascular Disease